=== PATIENT | female | born 1980 | race Caucasian/White ===

== ENCOUNTER 2019-07-19 02:44 | Day surgery (SDC) | payer OTHER, SELFPAY ==
[2019-07-09 15:23] VITALS: BMI 25.2
--- NOTE | ~2019-07-19 | XR_ITS ---
EXAMINATION: XR surgery orthopedic EXAM DATE: 07/19/2019 10:08 INDICATION: Right subtalar arthrodesis. TECHNIQUE: Fluoroscopy used during right subtalar arthrodesis performed by Dr. Charles Man JR MD. The DAP for this procedure was 5 cGycm2. No prior study. FINDINGS: Frontal and lateral projections demonstrate orthopedic fixation screw projecting over the middle aspect subtalar joint. Correlate with procedure note. IMPRESSION: Fluoroscopy used during right subtalar arthrodesis. Reviewed, dictated and finalized at location A. COUNSELOR
--- NOTE | 2019-07-19 07:15 | WPDHPUPDATE1 ---
History and Physical Update Update Date/Time: 07/19/19 07:15 History and Physical has been reviewed, including an updated exam of the patient. There are NO changes in the patient's condition. Risks, benefits, and alternatives have been discussed and questions answered. Patient agrees to proceed with procedure.
--- NOTE | 2019-07-19 07:49 | WPDANESEPPF ---
Anes - Initial Pre Proc Eval Procedure: Operation Date: 07/19/19 09:00 Proposed Procedures p Talotarsal Stabilization Right Foot With Arthroereisis Implant - Charles Man JR, MD Date/Time: 07/19/19 07:49 Surgeon: Charles Man JR, MD Pre Op Diagnosis: Talotarsal Instability Right Foot Patient Data Age: 39 Gender: F Height: 5 ft 7 in Weight: 73 kg Allergies Allergy/AdvReac Type Severity Reaction Status Date / Time aspirin Allergy Mild Difficulty Verified 07/09/19 15:20 Breathing Home Medications Medication Instructions Recorded Confirmed Type multivit with min-folic acid 0.4 mg PO 07/09/19 History [Adult One Daily Multivitamin] Patient hx anesthesia problems: none Family hx anesthesia problems: none PMFSH Past Medical History Medical History Smoker Tobacco abuse Family History Family History Grandparent Diabetes mellitus Social History Social History Smoking status: Light tobacco smoker Second hand tobacco smoke exposure: No Smoking end date: 05/29/10 Alcohol intake: current Anes - Eval Final PreProcedure Day of Procedure 07/19/19 07:49 Patient weight: normal Heart: regular rate and rhythm Lungs: clear to auscultation Airway: Mallampati scale class 1 Neurological: alert and oriented Last oral intake: >/= 8 hours ASA classification: II Emergent: no Anesthetic plan: proceed Anesthesia type and monitoring: general LMA and standard monitoring Informed Consent: The patient's anesthetic plan and its attendant risks and benefits were discussed with the patient/family/POA. Questions were solicited and answers provided to the satisfaction of the patient/family/POA.
[2019-07-19 08:00] VITALS: BP 113/45; PULSE 96; TEMP 36.6; O2SAT 100
[2019-07-19] MEDS: LACTATED RINGERS 1,000 ML 30 ML IV CONT (08:12)
[2019-07-19] MEDS: SCOPOLAMINE 1.5 MG PATCH TRANSDERM (08:25)
[2019-07-19] MEDS: ceFAZolin 2 GM/D5W 50 ML 2 GM/50 ML BAG IVPB (09:21)
[2019-07-19] MEDS: KETOROLAC 30 MG/ML VIAL (*BKC) IV PUSH (09:57)
[2019-07-19] MEDS: LIDOCAINE HCL 2% LOCAL INJ 20 ML VIAL INFILTRATE (09:57)
[2019-07-19 10:15] VITALS: BP 104/51; PULSE 84; RESP 16; O2SAT 97
--- NOTE | 2019-07-19 10:22 | PM.OP ---
Procedure Note - Brief Procedure Note - Brief Date of procedure: 07/19/19 Pre-op diagnosis: Talotarsal Instability Right Foot Post-op diagnosis: same Procedure performed: Talotarsal stabilization of the right foot with arthroereisis implant Anesthesia: MAC and local Surgeon: Charles Man JR, DPM Estimated blood loss (mL): 1 Complications: No immediate complications Condition: stable Disposition: same day
[2019-07-19 10:51] VITALS: BP 101/56; PULSE 66; RESP 16
--- NOTE | 2019-07-19 14:40 | OP_ITS ---
DATE OF PROCEDURE: 07/19/2019 PREOPERATIVE DIAGNOSIS: Talotarsal instability, right foot. POSTOPERATIVE DIAGNOSIS: Talotarsal instability, right foot. PROCEDURE: Talotarsal stabilization of the right foot with arthroereisis implant. PATHOLOGY: None. ANESTHESIA: MAC with local. HEMOSTASIS: Pneumatic ankle tourniquet at 250 mmHg. ESTIMATED BLOOD LOSS: Minimal. MATERIALS USED: 1 HyProCure size 6 implant, 3-0 PDS, 4-0 Vicryl, and 4-0 Monocryl. INJECTABLES: 20 cc of a 1:1 mixture of 2% lidocaine plain and 0.5% Marcaine plain. COMPLICATIONS: None. PROCEDURE IN DETAIL: Under mild sedation, the patient was brought into the operating room and placed on the operating table in the supine position. A pneumatic ankle tourniquet was placed about the patient's right ankle. Following IV sedation, local anesthesia was obtained about the right lower extremity utilizing 20 cc of a 1:1 mixture of 2% lidocaine plain and 0.5% Marcaine plain. I performed the block just posterior and inferior to the neck of the fibula depositing 20 cc. Prior to infiltrating the anesthesia, aspiration was performed to make sure that I was not into a vascular vessel. The foot was then scrubbed, prepped, and draped in the usual aseptic manner. An Esmarch bandage was then used to exsanguinate the patient's right foot and the pneumatic ankle tourniquet was then inflated. Surgery began in the following manner: Attention was then directed to the lateral aspect of the right hindfoot where the sinus tarsi was palpated. A small 2 cm incision was made along the lateral aspect of the sinus tarsi. The dissection was continued deep down through the subcutaneous tissues using sharp and blunt dissection. All bleeders were ligated and cauterized as necessary. At this point, a guidewire for the HyProCure implant was placed within the sinus tarsi canal. At this point, a size 5 trial for the HyProCure implant was placed from lateral to medial through the sinus tarsi canal and then the forefoot was placed through range of motion. There was excessive amounts of midtarsal joint motion with the size 5 implant, so the decision was made to try the size 6 HyProCure implant trial sizer, which also went from lateral to medial across the sinus tarsi. After insertion of the #6 trial implant, there was excellent locking of the midtarsal joint with an increase in elevation to the medial arch height and approximately 4 degrees of eversion still maintained at the subtalar joint. The decision was made to continue with the size 6 implant. At this point, the trial sizer was removed and the HyProCure implant was introduced through the sinus tarsi canal in a cannulated fashion. Fluoroscopy was used to make sure that the HyProCure implant was properly positioned within the sinus tarsi canal on the AP and lateral view. Furthermore on the AP view, the trailing end of the implant was noted to be along the lateral aspect of the neck of the talus. The wound site was flushed with copious amounts of sterile saline. Fluoroscopic images were used to make sure that the implant was appropriately aligned and oriented. Excellent correction of the talotarsal instability was performed. Next, the deep structures along the sinus tarsi were reapproximated with 3-0 PDS. Next, the subcutaneous structures were reapproximated and coapted utilizing 4-0 Vicryl. Next, the skin was reapproximated and coapted utilizing 4-0 Monocryl in a running subcuticular suture fashion technique. Upon completion of the procedure, the incision was dressed with Steri-Strips, Adaptic, 4x4s, Kerlix, and Coban. The pneumatic ankle tourniquet was then deflated and a prompt hyperemic response was noted to all digits of the right foot. A posterior splint was then applied to the right lower
== END 2019-07-19 11:35 | disposition home or self-care (01) ==
PROVIDERS: PCP Emergency Medicine; Visit Provider Podiatrist Foot & Ankle Surgery
PROC: (CPT 28750; principal; 2019-07-19 09:00)
DX: M25.374 Other instability, right foot (principal); M25.371 Other instability, right ankle; F17.210 Nicotine dependence, cigarettes, uncomplicated
CPT/HCPCS: 28899; A9270; J0690; J1100; J1885; J2250; J2405; J2704; J3010; J7120

== ENCOUNTER 2020-01-08 00:24 | Outpatient (CLI) | payer OTHER, SELFPAY ==
[2020-01-08 18:42] LABS: SARS-CoV-2 RNA PCR Negative
== END 2020-01-08 00:25 | disposition home or self-care (01) ==
LOC: ANHCOVIDDT 00:24
PROVIDERS: PCP Emergency Medicine; Visit Provider Urology
DX: Z01.812 Encounter for preprocedural laboratory examination (principal); Z20.828 Contact with and (suspected) exposure to other viral communicable diseases
CPT/HCPCS: 87635; C9803; U0003

== ENCOUNTER 2020-01-09 01:32 | Day surgery (SDC) | payer OTHER, SELFPAY ==
[2020-01-07 14:37] VITALS: BMI 28.1
[2020-01-09] VITALS (11 sets, daily range): BP systolic 91–131; BP diastolic 47–72; PULSE 67–96; RESP 12–20; TEMP 36.2–36.7; O2SAT 96–100
--- NOTE | ~2020-01-09 | XR_ITS ---
EXAMINATION: XR retrograde pyelo w/stent RT DATE: 01/09/2020 11:44 INDICATION: Right retrograde ureteral stent placement. TECHNIQUE: 64 fluoroscopic images of the abdomen and pelvis were obtained during procedure performed by Dr. Al. Radiologist was not present for the imaging or procedure. The amount of fluoroscopy ti me used during this procedure was 1.1 minutes. COMPARISON: None. FINDINGS: [employer] fluoroscopic images are unremarkable aside from a mild lumbar levorotoscoliosis. No evident uro lithiasis. A few small phleboliths in the left hemipelvis. Subsequent images demonstrate cannulation and retrograde wire advancement through the right ureter into the right kidney. Contrast injection de monstrates mild right hydroureteronephrosis. No evident obstructing stone or or mucosal irregularitie s identified. Final images demonstrate placement of a right internal ureteral stent with proximal loo p formed within a dilated upper pole calyx of the right kidney and partially formed loop in the bladd er. IMPRESSION: 1. Right internal ureteral stent placement in expected position. See procedure note for further detai l. Reviewed, dictated and finalized at location A. IMPRESSION: 1. Right internal ureteral stent placement in expected position. See procedure note for further detail.
[2020-01-09] MEDS: LACTATED RINGERS 1,000 ML 30 ML IV CONT ×2 (09:30→11:52)
--- NOTE | 2020-01-09 10:33 | WPDANESEPPF ---
Anes - Initial Pre Proc Eval Procedure: Operation Date: 01/09/20 11:15 Proposed Procedures p Cystoscopy, Right Ureteroscopy, Right Retrograde Pyelogram, Possible Right Stent Placement - Jey Al MD s Possible Bladder Tumor Resection - Jey Al MD Date/Time: 01/09/20 10:33 Surgeon: Jey Al MD Pre Op Diagnosis: Gross Hematuria/ Right Hydronephrosis Patient Data Age: 39 Gender: F Height: 5 ft 7 in Weight: 81.65 kg Allergies Allergy/AdvReac Type Severity Reaction Status Date / Time aspirin Allergy Mild Difficulty Verified 01/07/20 14:38 Breathing Home Medications Medication Instructions Recorded Confirmed Type acetaminophen [Tylenol Extra 1,000 mg PO BID PRN 01/07/20 01/07/20 History Strength] multivitamin 1 tablet PO DAILY 01/07/20 01/07/20 History Patient hx anesthesia problems: none Family hx anesthesia problems: none PMFSH Social History Social History Smoking packs per day: 0.5 Smoking cigarettes per day: 10.0 Years smoked: 15 Smoking pack-years: 7.50 Smoking status: Current every day smoker Tobacco type: cigarettes Second hand tobacco smoke exposure: No Smoking end date: 05/29/10 Alcohol intake: current Drinks per week: 5 Spiritual care concerns: No Anes - Eval Final PreProcedure Day of Procedure 01/09/20 10:33 Patient weight: normal Heart: regular rate and rhythm Lungs: clear to auscultation Airway: Mallampati scale class II Neurological: alert and oriented Last oral intake: >/= 8 hours ASA classification: II Emergent: no Anesthetic plan: proceed Anesthesia type and monitoring: general LMA and standard monitoring Informed Consent: The patient's anesthetic plan and its attendant risks and benefits were discussed with the patient/family/POA. Questions were solicited and answers provided to the satisfaction of the patient/family/POA.
--- NOTE | 2020-01-09 10:39 | WPDHPUPDATE1 ---
History and Physical Update Update Date/Time: 01/09/20 10:39 History and Physical has been reviewed, including an updated exam of the patient. There are NO changes in the patient's condition. Risks, benefits, and alternatives have been discussed and questions answered. Patient agrees to proceed with procedure.
[2020-01-09] MEDS: ceFAZolin 2 GM/D5W 50 ML 2 GM/50 ML BAG IVPB (10:46)
--- NOTE | 2020-01-09 12:00 | SUR.PHASEI ---
1200; PT AWAKE NOW. GRIMACING. C/O INTENSE URGE TO VOID. PLACED ON BEDPAN
--- NOTE | 2020-01-09 12:01 | PM.PROC ---
Procedure Note - Detailed Date of procedure: 01/09/20 Pre-op diagnosis: Gross Hematuria/ Right Hydronephrosis Post-op diagnosis: same Procedure performed: 1. Cystoscopy with right retrograde pyelography 2. Right ureteroscopy with ureteral biopsy 3. Transurethral biopsy the bladder. 4. Right ureteral stent placement. Description of procedure: Patient is brought to the operative suite where she has prepped and draped in routine sterile fashion while in a dorsal lithotomy position. 21F rigid cystoscope was placed into her bladder and urine was collected for cytology. 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 The left ureteral orifice is normal but there is heaped, edematous tissue occluding the right ureteral orifice and surrounding the orifice for a diameter of about 1-2 cm circumferentially. This has a very unusual appearance but appears to be edematous tissue and not neoplastic, by gross visualization. with some difficulty a was able to identify the right ureteral orifice and a right retrograde pyelogram. There is some narrowing of the distal most 2-3 cm of the distal right ureter but the remainder of the appears normal, with the exception of some dilatation as a result of obstruction. I did pass a 7.5 F flexible ureteral scope and did ureteral re-endoscopy. The collecting system and more proximal ureter. Perfectly normal. Again this area of narrowing and slightly abnormal ureteral mucosa occurs in the last 2-3 cm of the distal ureter. I took some biopsies of that distal ureteral mucosa. I then used a resectoscope to obtain biopsies and resected the heaped edematous tissue surrounding the right ureteral orifice. I also took a separate biopsy from an area of hyperemia in the posterior bladder wall. These biopsy sites were cauterized with a rollerball electrode and a 6 F variable length ureteral stent was placed. Blood loss was minimal. The patient was taken recovery room in good conditi Surgeon: Jey Al MD Estimated blood loss (mL): 5 Drains: Yes (6F right ureteral stent) Packing: No Pathology: yes (1. Urine cytology 2. Right periureteral tissue 3. Right ureteral biopsy 4. Posterior bladder wall) Complications: No immediate complications Condition: stable Disposition: PACU
--- NOTE | 2020-01-09 12:10 | SUR.PHASEI ---
PT CRYING. C/O URGE TO VOID AGAIN. PLACED ON BEDPAN. C/O PAIN WITH URINATION. FENTANYL GIVEN. PT COMFORTED.
--- NOTE | 2020-01-09 12:29 | SUR.PHASEI ---
PT C/O INTENSE URGE TO VOID WITH PAIN TO URETHRA/VAGINA AT 9/10. PT TEARFUL. CALLED PLACED TO DR AMADOR
[2020-01-09] MEDS: KETOROLAC 30 MG/ML VIAL (*BKC) IV PUSH (12:36)
[2020-01-09] MEDS: HYOSCYAMINE SULFATE 0.125 MG TABLET PO (12:38)
--- NOTE | 2020-01-09 12:39 | SUR.PHASEI ---
1230; DR AAMDOR AT BEDSIDE. TORADOL AND LEVSIN BOTH ORDERED. DISCUSSED ALLERGY TO ASA. PT STATES IT WAS WHEN SHE WAS A CHILD. UNKNOWN REACTION. DR AMADOR ORDERED TORADOL.
--- NOTE | 2020-01-09 13:17 | SUR.PHASEI ---
PT AWAKE AND ALERT. STATES PAIN 7/10 AND GETTING BETTER. PT TALKATIVE. CALM.
--- NOTE | 2020-01-09 13:34 | SUR.PHASEI ---
PT AWAKE AND ALERT. STATES PAIN MUCH BETTER AT 3-4/10. READY TO GO HOME.
--- NOTE | 2020-01-09 14:44 | SUR.PHASEII ---
1435 - dr. mandujano in room talking with pt
== END 2020-01-09 14:40 | disposition home or self-care (01) ==
PROVIDERS: PCP Emergency Medicine; Visit Provider Urology
PROC: (CPT 52352; principal; 2020-01-09 11:15)
DX: N13.30 Unspecified hydronephrosis (principal); N28.89 Other specified disorders of kidney and ureter; N30.91 Cystitis, unspecified with hematuria; F17.210 Nicotine dependence, cigarettes, uncomplicated; Z79.82 Long term (current) use of aspirin
CPT/HCPCS: 52354; 52332; 52204; 74420; 88108; 88305; A9270; C1758; C1769; C2617; J0690; J1100; J1885; J2250; J2405; J2704; J3010; J7120; Q9966

== ENCOUNTER 2020-02-14 11:24 | Outpatient (CLI) | payer OTHER, SELFPAY ==
--- NOTE | ~2020-02-14 | CT_ITS ---
EXAMINATION: CT abdomen pelvis wo con EXAM DATE: 02/14/2020 11:55 INDICATION: Right-sided hydronephrosis. TECHNIQUE: Spiral CT of the abdomen and pelvis was performed following intravenous injection of 100 m L Omnipaque 350. Axial, coronal and sagittal images were reviewed. The dose-length product (DLP) fo r this examination was 744.67 mGy-cm. The exposure was tailored according to patient size (auto mA e xposure control), and iterative reconstruction (ASIR) was used as additional dose reduction technique . There is no prior study for comparison. FINDINGS: The liver, spleen, adrenal glands and pancreas are unremarkable. Gallbladder is unremarkab le. No biliary obstruction. There is mild bilateral hydronephrosis without obstructing stones identi fied. Small uterus or hysterectomy. There is small amount of fluid located above the bladder measurin g about 2 x 4 cm of uncertain origin but could be from a ruptured ovarian cyst if patient still has o varies. The bladder is collapsed at time of imaging limiting evaluation. There is no retroperitoneal or pelvic lymphadenopathy. The appendix is normal. There is mild sigmoid colonic diverticulosis. There is no adjacent inflammat ory change to suggest diverticulitis. The stomach and small bowel are unremarkable. There is expecte d amount of colonic stool. No free intraperitoneal gas. The heart is normal in size. There are n o pericardial or pleural effusions. The lung bases are unremarkable. Mild to moderate lumbar levosc oliosis. IMPRESSION: 1. Mild bilateral hydronephrosis without stones or underlying etiology identified. 2. Small pocket amount of free fluid in the pelvis probably physiologic. 3. Mild sigmoid diverticulosis. Reviewed, dictated and finalized at location A. IMPRESSION: 1. Mild bilateral hydronephrosis without stones or underlying etiology iden tified. 2. Small pocket amount of free fluid in the pelvis probably physiologic. 3. Mild sigmoid diverticulosis.
== END 2020-02-14 11:25 | disposition home or self-care (01) ==
PROVIDERS: PCP Emergency Medicine; Visit Provider Urology
DX: N13.30 Unspecified hydronephrosis (principal); K57.90 Diverticulosis of intestine, part unspecified, without perforation or abscess without bleeding
CPT/HCPCS: 74176

== ENCOUNTER 2020-02-21 00:27 | Outpatient (CLI) | payer OTHER, SELFPAY ==
[2020-02-21 18:02] LABS: SARS-CoV-2 RNA PCR Negative
== END 2020-02-21 00:28 | disposition home or self-care (01) ==
LOC: ANHCOVIDDT 00:28
PROVIDERS: PCP Emergency Medicine; Visit Provider Urology
DX: Z01.812 Encounter for preprocedural laboratory examination (principal); Z20.828 Contact with and (suspected) exposure to other viral communicable diseases
CPT/HCPCS: 87635; C9803; U0003

== ENCOUNTER 2020-02-24 00:35 | Day surgery (SDC) | payer OTHER, SELFPAY ==
[2020-02-19 14:45] VITALS: BMI 28.1
--- NOTE | 2020-02-23 17:32 | PM.IMHP ---
H&P: HPI History of Present Illness Date/Time: 02/23/20 17:32 Chief complaint: hunters ulcer, hydronephrosis Narrative: Laura Galloway is a 39 year old female with errythema of the bladder and hydronephrosis Review of Systems Review of Systems: All systems reviewed & are unremarkable except as noted in HPI and below PMFSH Social History Social History Smoking packs per day: 0.5 Smoking cigarettes per day: 10.0 Years smoked: 15 Smoking pack-years: 7.50 Smoking status: Current every day smoker Tobacco type: cigarettes Second hand tobacco smoke exposure: No Smoking end date: 05/29/10 Alcohol intake: current Drinks per week: 5 Spiritual care concerns: No Meds Home Medications and Allergies Home Medications Medication Instructions Recorded Confirmed Type acetaminophen [Tylenol Extra 1,000 mg PO BID PRN 01/07/20 02/19/20 History Strength] multivitamin 1 tablet PO DAILY 01/07/20 02/19/20 History hydrocodone-acetaminophen 1 - 2 tablet PO Q6H PRN #20 tablet 01/09/20 02/19/20 Rx Allergies Allergy/AdvReac Type Severity Reaction Status Date / Time aspirin Allergy Mild Difficulty Verified 02/19/20 14:45 Breathing Exam Const: General: no acute distress HENMT: General nose exam: Normal nares present Mouth: Yes moist mucous membranes Eyes: General: appearance normal, both eyes and all related structures Neck: Neck: supple Resp: Effort & Inspection: normal respiratory effort GI: GI Palp: Yes Soft to palpation Skin: General skin exam: normal color Neuro: Speech: normal speech Extrem: General: normal to inspection Psych: Mental Status: mental status grossly normal Assessment and Plan Assessment and plan (1) Lesion of urinary bladder: Code(s): N32.9 - Bladder disorder, unspecified Status: Acute (2) Hydronephrosis: Code(s): N13.30 - Unspecified hydronephrosis Status: Acute Additional Plan cystoscopy, biopsy, possible steroid injection, Bilateral RGP, possible bilateral stents
--- NOTE | ~2020-02-24 | XR_ITS ---
EXAMINATION: XR retrograde pyelogram LT EXAM DATE: 02/24/2020 14:10 INDICATION: Left-sided retrograde. TECHNIQUE: Fluoroscopy used during XR retrograde pyelogram LT performed by Dr. Wilbert Godfrey MD . The DAP for this procedure was 0.3 mGym2. Cine run(s) available for review. FINDINGS: Left ureter was cannulated, injected. The distal 3 cm of the ureter has diffusely strictur ed appearance, with mild left-sided hydroureteronephrosis proximal to this. This narrowing could be c aused by acute or chronic inflammation, or cancer. Correlate with procedure note. IMPRESSION: Distal left ureteral 3 cm segment of narrowing with mild hydroureteronephrosis proximal. Could be inflammation related but transitional cell cancer not radiographically excludable. Reviewed, dictated and finalized at location A. IMPRESSION: Distal left ureteral 3 cm segment of narrowing with mild hydrourete ronephrosis proximal. Could be inflammation related but transitional cell cance r not radiographically excludable.
--- NOTE | 2020-02-24 07:19 | WPDHPUPDATE1 ---
History and Physical Update Update Date/Time: 02/24/20 07:19 History and Physical has been reviewed, including an updated exam of the patient. There are NO changes in the patient's condition. Risks, benefits, and alternatives have been discussed and questions answered. Patient agrees to proceed with procedure.
[2020-02-24 13:04] VITALS: BP 141/76; PULSE 96; RESP 16; TEMP 36.6; O2SAT 98
--- NOTE | 2020-02-24 13:16 | WPDANESEPPF ---
Anes - Initial Pre Proc Eval Procedure: Operation Date: 02/24/20 14:30 Proposed Procedures p Cystoscopy, Bladder Biopsy with Steroid Injection, Bilateral Retrograde Pyelogram, Possible Bilateral Stent Placement - Wilbert Godfrey MD Date/Time: 02/24/20 13:16 Surgeon: Wilbert Godfrey MD Pre Op Diagnosis: hunters ulcer, hydronephrosis Patient Data Age: 39 Gender: F Height: 5 ft 7 in Weight: 81.65 kg Allergies Allergy/AdvReac Type Severity Reaction Status Date / Time aspirin Allergy Mild Difficulty Verified 02/19/20 14:45 Breathing Home Medications Medication Instructions Recorded Confirmed Type acetaminophen [Tylenol Extra 1,000 mg PO BID PRN 01/07/20 02/24/20 History Strength] multivitamin 1 tablet PO DAILY 01/07/20 02/24/20 History hydrocodone-acetaminophen 1 - 2 tablet PO Q6H PRN #20 tablet 01/09/20 02/24/20 Rx Patient hx anesthesia problems: none Family hx anesthesia problems: none PMFSH Past Medical History Medical History (Updated 02/23/20 @ 17:33 by Wilbert Godfrey MD) Smoker Tobacco abuse Surgical History Surgical History (Updated 02/24/20 @ 13:34 by Alex Olivas MD) Hx of cystoscopy Social History Social History (Updated 02/24/20 @ 13:32 by Alex Olivas MD) Smoking packs per day: 0.5 Smoking cigarettes per day: 10.0 Years smoked: 15 Smoking pack-years: 7.50 Smoking status: Current every day smoker Tobacco type: cigarettes Second hand tobacco smoke exposure: No Alcohol intake: current Drinks per week: 5 Spiritual care concerns: No Anes - Eval Final PreProcedure Day of Procedure 02/24/20 13:16 Patient weight: overweight and obese Heart: regular rate and rhythm Lungs: clear to auscultation Airway: Mallampati scale class 1 Neurological: alert and oriented Last oral intake: >/= 8 hours ASA classification: II Emergent: no Anesthetic plan: proceed Anesthesia type and monitoring: general GIVS and standard monitoring Informed Consent: The patient's anesthetic plan and its attendant risks and benefits were discussed with the patient/family/POA. Questions were solicited and answers provided to the satisfaction of the patient/family/POA.
[2020-02-24] MEDS: LACTATED RINGERS 1,000 ML 30 ML IV CONT (13:21)
[2020-02-24] MEDS: ceFAZolin 2 GM/D5W 50 ML 2 GM/50 ML BAG IVPB (13:37)
[2020-02-24] MEDS: LIDOCAINE HCL 2% GEL UROJET 10 ML PKG MUCOUS MEM (13:53)
[2020-02-24] MEDS: TRIAMCINOLONE ACET INJ 40 MG/ML VIAL 200 MG IM (13:57)
[2020-02-24] MEDS: KETOROLAC 30 MG/ML VIAL (*BKC) IV PUSH (14:04)
--- NOTE | 2020-02-24 14:13 | PM.PROC ---
Procedure Note - Detailed Date of procedure: 02/24/20 Pre-op diagnosis: hunters ulcer, hydronephrosis Post-op diagnosis: same Procedure performed: Cystoscopy with left retrograde pyelogram Bladder biopsy with steroid injection Description of procedure: She was correctly identified informed consent was obtained. She from the operating room. She was given mac anesthesia. She was placed in dorsal lithotomy position. She was given appropriate perioperative antibiotics. A time-out performed. Examination of her bladder revealed a reddened area on the right mirella trigone extending up to the right lateral wall. There is cautery artifact in this area. I was unable to appreciate ureteral orifice. I could see the ureteral orifice on the left. I did a retrograde pyelogram on the left. She had a short segment of her left distal ureter which seemed to be strictured for about 2-3 cm. She then had mild proximal hydronephrosis to this. There is no filling defects. The ureter seemed to promptly drained. I examined the ureter with fluoroscopy as well as visually. Dye could be seen effluxing from the ureter and the kidney seemed to drain on that side. I elected to not leave a stent. I then searched for the contralateral ureteral orifice. There is extensive cautery artifact in this area and I was unable to find the contralateral ureteral orifice. As she has no right-sided symptoms I elected to not search further. I then biopsied an area of redness remote from where I thought the ureteral orifice would be. I took the specimens. I fulgurated the area. I did inject Kenalog. 5 cc total of 40 milligrams/mL. There is minimal bleeding from the injection sites. Her bladder was drained. She was awakened and transferred to the PACU in stable condition. Anesthesia: MAC Surgeon: Wilbert Godfrey MD Estimated blood loss (mL): 2 Drains: No Packing: No Pathology: yes (Bladder biopsy) Complications: No immediate complications Condition: stable Disposition: PACU
[2020-02-24 14:18] VITALS: BP 109/72; PULSE 88; RESP 14; O2SAT 97
[2020-02-24] MEDS: fentaNYL CITRATE INJ (*CRX) 100 MCG/2 ML VIAL 25 MCG IV PUSH ×3 (14:23→14:36)
[2020-02-24 14:45] VITALS: BP 125/78; PULSE 70; RESP 18; O2SAT 99
[2020-02-24] MEDS: oxyCODONE HCL (*CRX) 5 MG TAB IR PO (14:49)
[2020-02-24 15:15] VITALS: BP 126/67; PULSE 77; RESP 18
== END 2020-02-24 15:23 | disposition home or self-care (01) ==
PROVIDERS: PCP Emergency Medicine; Visit Provider Urology
PROC: (CPT 52352; principal; 2020-02-24 14:30)
DX: N30.10 Interstitial cystitis (chronic) without hematuria (principal); N13.30 Unspecified hydronephrosis; F17.210 Nicotine dependence, cigarettes, uncomplicated
CPT/HCPCS: 52283; 52204; 74420; 88305; A9270; C1758; C1769; J0690; J1885; J2250; J2405; J2704; J3010; J3301; J7120; Q9966

== ENCOUNTER → 2021-08-17 00:24 | Outpatient (CLI) | payer OTHER, SELFPAY ==
[2021-08-17 11:12] LABS: SARS-CoV-2 RNA PCR Negative
== END ==
PROVIDERS: PCP Emergency Medicine; Visit Provider Surgery Plastic and Reconstructive Surgery
DX: Z01.812 Encounter for preprocedural laboratory examination (principal); Z20.822 Contact with and (suspected) exposure to COVID-19
CPT/HCPCS: C9803; U0003; U0005

== ENCOUNTER 2021-08-17 08:57 | Outpatient (CLI) | payer OTHER, SELFPAY ==
--- NOTE | 2021-08-17 09:07 | ECG_ITS ---
Measurements Intervals [place] Rate: 71 P: 62 WI: 153 QRS: 60 QRSD: 81 T: 49 QT: 376 QTc: 410 Interpretive Statements SINUS RHYTHM NORMAL ECG NO PREVIOUS ECG AVAILABLE FOR COMPARISON Electronically Signed On 08-17-2021 11:21:56 CDT by Tray Foley M.D.
[2021-08-17 09:38] LABS: Hematocrit 38.5 % (37.0-47.0); Hemoglobin 12.9 g/dL (12.0-15.0)
== END 2021-08-17 08:58 | disposition home or self-care (01) ==
LOC: ANHSURGERY 09:01
PROVIDERS: Anesthesiology; PCP Nurse Practitioner Family; Visit Provider Surgery Plastic and Reconstructive Surgery
DX: Z01.818 Encounter for other preprocedural examination (principal); Z41.9 Encounter for procedure for purposes other than remedying health state, unspecified
CPT/HCPCS: 36415; 85014; 85018; 93005

== ENCOUNTER 2021-08-20 00:56 | Day surgery (SDC) | payer OTHER, SELFPAY ==
[2021-08-10 13:51] VITALS: BMI 28.1
--- NOTE | 2021-08-10 14:04 | PC.NURSE ---
Report to the Outpatient Waiting Room, entrance under the green pavilion located off [facility], at time 6:00 on date 08/20/21. OR Time: 7:30. - You and your visitor will be asked a series of questions to screen for COVID 19 for your protection. - A mask is required within the hospital. One visitor will be allowed to accompany the patient into the hospital. Patients visitor will be instructed to remain with patient at all times or leave the building. We will allow the visitor to come back to the postoperative area when patient is ready. Preoperative COVID Testing Requirements: COVID TEST 08/17 AT 9:05 No COVID Test needed if: (proof is required; if not received patient will have Rapid Test prior to entry) - Patient has received COVID Vaccine at least 14 days prior to procedure date or - Patient has positive COVID test result within last 90 days of surgery date. COVID Test needed if above criteria is not met If not COVID vaccinated a COVID test must be conducted within 72 hours of surgery and patient is asked to isolate self from time of testing until procedure. You will go to the [facility] for your COVID testing. The [employer] [facility] site is located at the corner of [address] [facility]. You will only be called if COVID results are positive and your surgeon may reschedule your elective surgery date. Patients may have clear liquids (water, carbonated beverages, clear teas, apple juice) until 3 hours prior to surgery (4:30) with a maximum of 20 ounces. - No food from midnight until time of surgery Take the following medications with a SIP of water the morning of surgery: NONE Medications to discontinue per physician: VITAMINS/SUPPLEMENTS Date to take last dose: 08/16/21 Please no make-up, nail yakut, hairspray, perfume, deodorant, or body powder the day of surgery. No jewelry (including any body piercings) or valuables the day of surgery, leave them at home. Please take a shower or bath the night before, or the morning of, surgery with an antibacterial soap. Wear comfortable, loose fitting clothing. - Jewelry must be removed prior to entering the operating room. Rings and piercings that are not removed may be cut off. - The hospital will not accept responsibility for valuables. - Please leave all valuables, including medications, at home the day of surgery. If you are going home after surgery, a licensed bus driver must drive you home. - NO public transportation without another adult. - We recommend that an adult stay with you for 24 hours following discharge. - We also recommend that you do not drive, make important decision, drink alcoholic beverages, or take any drugs that were not prescribed by your health care provider for at least 24 hours after your discharge time. Follow any additional instructions given to you from your surgeon. Telephone instructions given to GÉNESIS COONEY and asked if any additional questions and then verbalized understanding. Patient advised to call surgeon office or pre surgery nurse liaison [phone] if any additional questions.
[2021-08-20] VITALS (11 sets, daily range): BP systolic 104–125; BP diastolic 62–79; PULSE 80–95; RESP 12–20; TEMP 36.2–36.8; O2SAT 94–100; BMI 28.7
--- NOTE | 2021-08-20 06:08 | W.PM.PROC2 ---
Procedure Note - Detailed Date of Procedure 08/20/21 Pre-op Diagnosis Micromastia Breast ptosis Skin laxity Localized adiposity Post-op Diagnosis Same Procedure Performed 1. Bilateral breast augmentation mastopexy 2. Suction lipectomy of the lateral breasts 3. Suction lipectomy of saddlebags 4. Extended abdominoplasty 5. Suction lipectomy abdomen/flank Surgeon Richard Felder MD Anesthesia General Findings Inverted T superior pedicle mastopexy Implants bilateral Raciel Lee SoftTouch 440 cc Right - REF# [id number] SN [id number] Left - REF# [id number] SN [id number] Abdominal tissue removed - 1746 grams Lipoaspirate - 3750 cc Description of Procedure They are here today for the above procedures. Previously and again today the risks, benefits, alternatives were discussed in extensive detail. I wanted them to be very realistic about the risks involved as well as expectations. We discussed aftercare and what to monitor for. I was very upfront about the risks of wound breakdown leading to loss of skin, open wounds, and need for additional procedures with permanent abdominal deformity. We discussed DVT/PE risks and management. Made sure answered all of their questions to their satisfaction today and consent was obtained. Marked in the preoperative holding area with her verification. The patient was taken to the operating room placed supine on the operating table. Anesthesia was provided by anesthesiology. She was prepped and draped in a standard sterile fashion with a 360 degree prep. Breast An 11 blade was used to create an entry point for lateral breast suction lipectomy. Tumescent was utilized and adequate time for hemostasis allowed. A 5mm basket cannula was used based on S.A.F.E. technique to complete lateral breast suction lipectomy based on pre-operative planning, intraoperative observation and rolling pinch test. Tegaderm nipple Jenkins were placed. A 15 blade used to make an incision just superior to the inframammary fold leaving a cusp of de-epithelized tissue at the t junction. Dissection was continued until the chest wall as identified. I incised the pectoralis major along its inferior border and completely released the inferior border leaving the medial border intact. I created a subpectoral pocket in the appropriate dimensions based on our preoperative planning for the implant. I then copiously irrigated with saline solution and verified a strict hemostasis. Next the use a triple antibiotic and Betadine containing solution to irrigate the pocket. I washed my gloves with the triple antibiotic and Betadine solution. We washed the implant immediately upon opening it with this solution and only opened it when we needed it. I used implant funnel and no-touch technique. The implant was introduced into the pocket using the funnel. Having verified positioning of the implant this was closed using 2-0 Vicryl. I tailor tacked the breast into position. Placed her in a sitting position. Verified the nipple-areolar location based on preoperative planning as well as intraoperative observations and measurements in full agreement. She was placed supine. I de-epithelialized the pedicle. I then removed the inferior central portion of the breast need making sure the implant was well protected. I elevated medial and lateral tissue flaps as well for planned closure. I closed along the IMF with 2-0 Stratafix. Along the vertical with 2-0 PDS. I closed around the Len with 3-0 strata fix. 3-0 Monocryl along the vertical. 3-0 Stratafix along the IMF. I finally closed everything with running subcuticular 4-0 Monocryl and tissue glue. Abdomen An 11 blade was used to create an entry point abdomen / flank and saddle bag suction lipectomy. Tumescent was utilized and adequate time for hemostasis allowed. A 5mm basket cannula was used based on S.A.F.E. technique to complete lateral breast suction lipectomy based on pre-operative chau
[2021-08-20 06:37] LABS: Urine Cotinine NEGATIVE
--- NOTE | 2021-08-20 06:48 | WPDANESEPPF ---
Anes - Initial Pre Proc Eval Procedure: Operation Date: 08/20/21 07:30 Proposed Procedures p Bilateral Breast Augmentation, Bilateral Breast Mastopexy - Richard Felder MD s Abdominoplasty with Liposuction - Richard Felder MD s Liposuction of Lateral Bilateral Breasts, Bilateral Saddle Bags - Richard Felder MD Date/Time: 08/20/21 06:48 Surgeon: Richard Felder MD Pre Op Diagnosis: Micromastia Breast Ptosis Patient Data Age: 41 Gender: F Height: 1.7 m Weight: 83.1 kg Allergies Allergy/AdvReac Type Severity Reaction Status Date / Time aspirin Allergy Mild Difficulty Verified 08/20/21 06:33 Breathing Home Medications Medication Instructions Recorded Confirmed Type docusate sodium 100 mg capsule 100 mg PO DAILY #14 cap 08/04/21 08/10/21 Rx ondansetron HCl 4 mg tablet 4 mg PO Q8H #21 tablet 08/04/21 08/10/21 Rx carisoprodol 350 mg tablet 350 mg PO TID PRN #21 tablet 08/05/21 08/10/21 Rx oxycodone-acetaminophen 5 mg-325 1 tablet PO Q6H PRN #30 tablet 08/05/21 08/10/21 Rx mg tablet multivitamin 1 tablet PO DAILY 08/10/21 08/20/21 History Laboratory Tests 08/20/21 06:24 Cotinine Negative Patient hx anesthesia problems: post op nausea/vomiting Family hx anesthesia problems: none Results Review: All pre-operative results and documents have been reviewed as part of the pre-operative evaluation. [facility] Past Medical History Medical History Hx of cervical cancer Smoker Tobacco abuse Surgical History Surgical History H/O transurethral destruction of bladder lesion Hx of cystoscopy Hx of foot surgery Family History Family History Grandparent Diabetes mellitus Social History Social History Smoking packs per day: 1 Smoking cigarettes per day: 20.0 Years smoked: 11 Smoking pack-years: 11.00 Smoking status: Former smoker Tobacco type: cigarettes Second hand tobacco smoke exposure: No Smoking end date: 07/17/21 Alcohol intake: former Drinks per week: 5 Substance use: current Substance use type: marijuana Living arrangements: with family Spiritual care concerns: No Anes - Eval Final PreProcedure Day of Procedure 08/20/21 06:48 Patient weight: overweight Heart: regular rate and rhythm Lungs: clear to auscultation Airway: Mallampati scale class 1 Neurological: alert and oriented Last oral intake: >/= 8 hours ASA classification: II Emergent: no Anesthetic plan: proceed Anesthesia type and monitoring: general ETT and standard monitoring Results Review: All pre-operative results and documents have been reviewed as part of the pre-operative evaluation. Informed Consent: The patient's anesthetic plan and its attendant risks and benefits were discussed with the patient/family/POA. Questions were solicited and answers provided to the satisfaction of the patient/family/POA.
[2021-08-20] MEDS: LACTATED RINGERS 1,000 ML 30 ML IV CONT ×2 (06:53→13:00)
--- NOTE | 2021-08-20 06:53 | SUR.PREOP ---
500ML IVF BOLUS INFUSING PER DR FOLEY
--- NOTE | 2021-08-20 07:08 | WPDHPUPDATE1 ---
History and Physical Update Update Date/Time: 08/20/21 07:08 History and Physical has been reviewed, including an updated exam of the patient. There are NO changes in the patient's condition. Risks, benefits, and alternatives have been discussed and questions answered. Patient agrees to proceed with procedure.
[2021-08-20] MEDS: SCOPOLAMINE 1.5 MG PATCH TRANSDERM (07:21)
[2021-08-20] MEDS: ceFAZolin 2 GM/D5W 50 ML 2 GM/50 ML BAG IVPB (07:30)
[2021-08-20] MEDS: TRANEXAMIC ACID 1,000MG/ISO100 1,000 MG/100 ML BAG 200 MG IVPB (08:00)
[2021-08-20] MEDS: LACTATED RINGERS IRRIG 1,000 ML, LIDOCAINE HCL 1% LOCAL INJ 50 ML, EPINEPHrine HCL INJ ... INFILTRATE (10:55)
[2021-08-20] MEDS: ceFAZolin SODIUM 1 GM VIAL IV PUSH (11:52)
[2021-08-20] MEDS: ONDANSETRON INJ 4 MG/2 ML VIAL IV PUSH (13:22)
[2021-08-20] MEDS: fentaNYL CITRATE INJ (*CRX) 100 MCG/2 ML VIAL 25 MCG IV PUSH ×8 (13:24→14:28)
--- NOTE | 2021-08-20 14:45 | PC.NURSE ---
This patient, Laura Galloway, was received from PACU on 08/20/21 at 1445. Patient/family oriented to unit policies and routines
[2021-08-20] MEDS: LACTATED RINGERS 1,000 ML 125 ML IV CONT ×2 (15:03→22:54)
[2021-08-20] MEDS: MORPHINE SULFATE (*CRX) 2 MG/ML INJ IV PUSH ×3 (15:05→21:20)
[2021-08-20] MEDS: carisoprodoL (*CRX) 350 MG TABLET PO ×2 (16:06→22:54)
[2021-08-20] MEDS: ENOXAPARIN 40 MG/0.4 ML SYRINGE SUB-Q (19:03)
[2021-08-20] MEDS: DOCUSATE SODIUM 100 MG CAPSULE PO (19:06)
[2021-08-20] MEDS: oxyCODONE/ACETAMINOPHEN (*CRX) 5-325 MG TABLET PO (19:06)
[2021-08-20] MEDS: diazePAM (*CRX) 5 MG TABLET PO (21:20)
[2021-08-21 00:10] VITALS: PULSE 86; RESP 16; O2SAT 95
[2021-08-21 00:11] VITALS: BP 98/55; PULSE 86; RESP 16; TEMP 37; O2SAT 95
[2021-08-21] MEDS: MORPHINE SULFATE (*CRX) 2 MG/ML INJ IV PUSH ×3 (00:24→07:21)
--- NOTE | 2021-08-21 00:51 | PC.NURSE ---
Pt refusing catheter removal or to get out of bed at this time. Pt states, I'm not ready yet, it's too soon . Education provided regarding importance of cough, deep breathing, and getting out of bed for prevention of secondary infections and blood clots. Pt verbalized understanding however wants to continue to give herself more time to rest. There was some drainage noted to abdominal bind that was in place. Binder removed and foam lifted and fluffs that were present were saturated with blood. Dressing reinforced with 2 additional packages of fluffs, foam piece reapplied, and abdominal binder replaced. Pt did not tolerate this well.
[2021-08-21] MEDS: oxyCODONE/ACETAMINOPHEN (*CRX) 5-325 MG TABLET PO ×3 (03:37→18:42)
[2021-08-21 03:45] VITALS: BP 108/61; PULSE 96; RESP 18; TEMP 36.9; O2SAT 95
[2021-08-21] MEDS: carisoprodoL (*CRX) 350 MG TABLET PO ×4 (05:08→22:37)
[2021-08-21] MEDS: LACTATED RINGERS 1,000 ML 125 ML IV CONT (07:21)
[2021-08-21] MEDS: DOCUSATE SODIUM 100 MG CAPSULE PO ×2 (07:22→18:41)
[2021-08-21 07:30] VITALS: BP 103/63; PULSE 100; RESP 18; TEMP 36.4
--- NOTE | 2021-08-21 08:09 | WPDPN ---
Progress Note: A&P Assessment and Plan (1) Encounter for cosmetic surgery: Code(s): Z41.1 - Encounter for cosmetic surgery Status: Acute Assessment and Plan: Doing well after: 1. Bilateral breast augmentation mastopexy 2. Suction lipectomy of the lateral breasts 3. Suction lipectomy of saddlebags 4. Extended abdominoplasty 5. Suction lipectomy abdomen/flank Will plan for discharge home. Today we had a lengthy discussion about the care. What monitor for. Activity limitations. This was a lengthy open-ended conversation making sure answered all of her questions to her satisfaction. She understands when to call 911/proceed to the ER. She understands she can call with any questions or concerns. She is concerned she will not be able to leave today. We will monitor throughout the day and plan to discharge home later as long as ambulating, tolerating diet, pain controlled and doing well. Subjective Date/time seen: 08/21/21 08:09 Overnight she has done fairly well. She has been out of bed. Tolerating some p.o.. Moderate pain control. No fevers or chills. No nausea vomiting. No shortness of breath. No chest pain. No calf tenderness. Review of Systems Review of Systems: All systems reviewed & are unremarkable except as noted in HPI and below Exam Narrative: Alert and oriented no obvious distress Respiratory on labored Bilateral breasts are soft. No signs of infection. No hematoma. No seroma. Good color and capillary refill. Healing well. Abdomen is healing well. No signs of infection. No hematoma. No seroma. Good color and capillary refill. No calf tenderness. Negative Homans. Objective Data Vital Signs Vital Signs: Vital Signs - 24 hr 08/20/21 13:00 08/20/21 13:15 08/20/21 13:30 Temperature 36.2 C L Pulse Rate 88 82 90 Respiratory Rate 12 14 15 Blood Pressure 113/66 104/69 118/72 Pulse Oximetry 100 100 97 08/20/21 13:45 08/20/21 14:00 08/20/21 14:15 Temperature Pulse Rate 89 84 85 Respiratory Rate 14 14 16 Blood Pressure 125/73 121/79 123/75 Pulse Oximetry 94 94 94 08/20/21 14:30 08/20/21 14:50 08/20/21 19:00 Temperature 36.6 C 36.8 C Pulse Rate 82 84 80 Respiratory Rate 12 20 16 Blood Pressure 124/71 121/70 108/62 Pulse Oximetry 94 96 95 08/20/21 20:00 08/21/21 00:10 08/21/21 00:11 Temperature 37.0 C Pulse Rate 80 86 86 Respiratory Rate 16 16 16 Blood Pressure 98/55 L Pulse Oximetry 95 95 95 08/21/21 03:45 Temperature 36.9 C Pulse Rate 96 Respiratory Rate 18 Blood Pressure 108/61 Pulse Oximetry 95 Intake/Output Intake/Output: Intake & Output 08/18/21 08/19/21 08/20/21 08/21/21 23:59 23:59 23:59 23:59 Intake Total 2950 1120 Output Total 1310 1100 Balance 1640 20 Meds/Results Medications: Active Medications Generic Name Dose Route Start Last Admin Trade Name Freq PRN Reason Stop Dose Admin Carisoprodol 350 mg 08/20/21 18:00 08/21/21 05:08 Carisoprodol (*Crx) 350 Mg Tablet PO 350 mg Q6HR DIVYA Administration Diazepam 5 mg 08/20/21 12:46 08/20/21 21:20 Diazepam (*Crx) 5 Mg Tablet PO 5 mg TID PRN Administration Anxiety Docusate Sodium 100 mg 08/20/21 21:00 08/21/21 07:22 Docusate Sodium 100 Mg Capsule PO 100 mg Q12HR DIVYA Administration Enoxaparin Sodium 40 mg 08/20/21 19:00 08/20/21 19:03 Enoxaparin 40 Mg/0.4 Ml Syringe SUB-Q 40 mg QPM DIVYA Administration Lactated Ringer's 1,000 mls @ 125 mls/hr 08/20/21 12:50 08/21/21 07:21 Lr - Lactated Ringers Iv IV CONT 125 mls/hr .Q8H DIVYA Administration Morphine Sulfate 2 mg 08/20/21 12:46 08/21/21 07:21 Morphine Sulfate (*Crx) 2 Mg/Ml Inj IV PUSH 2 mg Q2H PRN Administration Pain Ondansetron HCl 4 mg 08/20/21 12:46 Ondansetron Inj 4 Mg/2 Ml Vial IV PUSH Q6H PRN Nausea Oxycodone/Acetaminophen 1 - 2 tablet 08/20/21 12:46 08/21/21 03:37 Oxycodone/Acetaminophen (*Crx)
[2021-08-21 18:40] VITALS: BP 126/74; PULSE 100; RESP 16; TEMP 37.2
[2021-08-21] MEDS: ENOXAPARIN 40 MG/0.4 ML SYRINGE SUB-Q (18:42)
[2021-08-22] MEDS: oxyCODONE/ACETAMINOPHEN (*CRX) 5-325 MG TABLET PO ×4 (00:03→17:23)
[2021-08-22] MEDS: carisoprodoL (*CRX) 350 MG TABLET PO ×3 (05:23→17:23)
[2021-08-22 06:20] VITALS: BP 109/67; PULSE 101; RESP 20; TEMP 36.2
--- NOTE | 2021-08-22 10:17 | WPDPN ---
Progress Note: A&P Assessment and Plan (1) Encounter for cosmetic surgery: Code(s): Z41.1 - Encounter for cosmetic surgery Status: Acute Assessment and Plan: Doing well after: 1. Bilateral breast augmentation mastopexy 2. Suction lipectomy of the lateral breasts 3. Suction lipectomy of saddlebags 4. Extended abdominoplasty 5. Suction lipectomy abdomen/flank Much improved from yesterday. Will d/c home. Today we had a lengthy discussion about the care. What to monitor for. Importance of ambulation / activity as she has chosen this for her DVT prophylaxis. Importance of deep breathing (she has IS). When to dial 911/ proceed to ER. Call with any questions or concerns. Subjective Date/time seen: 08/22/21 8:45am Overall much improved. She has been out of bed. Ambulated. Tolerating some p.o.. Moderate pain control. No fevers or chills. No nausea vomiting. No shortness of breath. No chest pain. No calf tenderness. She refused catheter removal and she understands the importance that we remove and she ambulate. She states overall much better and she believes she is improved enough to go home later today. Review of Systems Review of Systems: All systems reviewed & are unremarkable except as noted in HPI and below Exam Narrative: Alert and oriented no obvious distress Respiratory on labored Bilateral breasts are soft. No signs of infection. No hematoma. No seroma. Good color and capillary refill. Healing well. Abdomen is healing well. No signs of infection. No hematoma. No seroma. Good color and capillary refill. No calf tenderness. Negative Homans. Objective Data Vital Signs Vital Signs: Vital Signs - 24 hr 08/21/21 18:40 08/22/21 06:20 Temperature 37.2 C 36.2 C L Pulse Rate 100 101 H Respiratory Rate 16 20 Blood Pressure 126/74 109/67 Intake/Output Intake/Output: Intake & Output 08/19/21 08/20/21 08/21/21 08/22/21 23:59 23:59 23:59 23:59 Intake Total 2950 1870 600 Output Total 1310 3950 1500 Balance 7269 -4973 -928 Meds/Results Medications: Active Medications Generic Name Dose Route Start Last Admin Trade Name Freq PRN Reason Stop Dose Admin Carisoprodol 350 mg 08/20/21 18:00 08/22/21 05:23 Carisoprodol (*Crx) 350 Mg Tablet PO 350 mg Q6HR DIVYA Administration Diazepam 5 mg 08/20/21 12:46 08/20/21 21:20 Diazepam (*Crx) 5 Mg Tablet PO 5 mg TID PRN Administration Anxiety Docusate Sodium 100 mg 08/20/21 21:00 08/21/21 18:41 Docusate Sodium 100 Mg Capsule PO 100 mg Q12HR DIVYA Administration Enoxaparin Sodium 40 mg 08/20/21 19:00 08/21/21 18:42 Enoxaparin 40 Mg/0.4 Ml Syringe SUB-Q 40 mg QPM DIVYA Administration Morphine Sulfate 2 mg 08/20/21 12:46 08/21/21 07:21 Morphine Sulfate (*Crx) 2 Mg/Ml Inj IV PUSH 2 mg Q2H PRN Administration Pain Ondansetron HCl 4 mg 08/20/21 12:46 Ondansetron Inj 4 Mg/2 Ml Vial IV PUSH Q6H PRN Nausea Oxycodone/Acetaminophen 1 - 2 tablet 08/20/21 12:46 08/22/21 05:23 Oxycodone/Acetaminophen (*Crx) 5-325 Mg Tablet PO 2 tablet Q6H PRN Administration Pain
--- NOTE | 2021-08-22 10:23 | P.DS_ITS ---
DS: Admitting Diagnosis Discharge Date 08/22/2021 Admitting Diagnosis Encounter for cosmetic surgery DS: Discharge Diagnosis Discharge Diagnosis (1) Encounter for cosmetic surgery: Code(s): Z41.1 - Encounter for cosmetic surgery Status: Acute DS: Summary Hospital Course Hospital Course: Overall has done very well after: 1. Bilateral breast augmentation mastopexy 2. Suction lipectomy of the lateral breasts 3. Suction lipectomy of saddlebags 4. Extended abdominoplasty 5. Suction lipectomy abdomen/flank The first day she didn't feel like she could care for herself at home. Stayed a second night. Much improved. Ambulating. Pain controlled. Tolerating diet. Will d/c home and follow-up. Time Spent with Patient Time attestation: Total time spent providing and/or coordinating discharge services: Exam Narrative: Alert and oriented no obvious distress Respiratory on labored Bilateral breasts are soft. No signs of infection. No hematoma. No seroma. Good color and capillary refill. Healing well. Abdomen is healing well. No signs of infection. No hematoma. No seroma. Good color and capillary refill. No calf tenderness. Negative Homans. Discharge Plan Discharge Patient Disposition: Home, Self-Care Discharge Instructions: POST OPERATIVE DISCHARGE INSTRUCTIONS RICHARD FELDER M.D. [facility] [address] [place] [address] * No driving for 24 hours after anesthesia and while you are taking pain medication. * Take all prescribed medication as directed * Diet as tolerated. * No lifting or activity that raises blood pressure for 48 hours. * Regular walking / ambulation. * May shower. Once you shower do not take pain medication before showering as the combination of medication and heat may cause you to feel dizzy or pass out. * No pools or tubs for 2 weeks. * Call with any questions or concerns. * No lifting over 20 lb or straining for 6 weeks * Slowly stand up straight over the week as tolerated * Dressing Care: Continue surgical bra/abdominal binder 23 hours per day. If you have any questions or concerns, please call the office . If it is after hours you will be directed to the urban and regional planner exchange. Shortness of breath, chest pain, or other medical emergency dial 911 / proceed to the Emergency Room. Stand Alone Forms: General Discharge Instructions Follow-up/Referrals: Richard Felder MD [Physician] - 1 Week Discharge Medications: Continued docusate sodium [Colace] 100 mg capsule 100 mg PO DAILY Qty: 14 RF: 0 ondansetron HCl 4 mg tablet 4 mg PO Q8H Qty: 21 RF: 0 carisoprodol [Soma] 350 mg tablet 350 mg PO TID PRN (Reason: muscle pain) Qty: 21 RF: 0 oxycodone-acetaminophen [Percocet] 5-325 mg tablet 1 tablet PO Q6H PRN (Reason: pain) Qty: 30 RF: 0 multivitamin Tablet 1 tablet PO DAILY RF: 0
--- NOTE | 2021-08-22 10:49 | WPDANESPN ---
Anes - Prog Note Post-Op Date/Time: 08/22/21 10:49 Cardiovascular status: normal Respiratory status: normal Airway patency: baseline Mental status: baseline Post-Op hydration status: normal Vital Signs: Last Vital Signs Temp 97.1 F L 08/22/21 06:20 Pulse 101 H 08/22/21 06:20 Resp 20 08/22/21 06:20 BP 109/67 08/22/21 06:20 Pulse Ox 95 08/21/21 03:45 Pain Score (VAS): 0 I/O: Intake & Output 08/21/21 08/22/21 08/22/21 23:59 07:59 15:59 Intake Total 750 600 Output Total 2850 1500 Balance -2100 -900 Patient Feedback: Patient satisfied with anesthetic care.
[2021-08-22] MEDS: DOCUSATE SODIUM 100 MG CAPSULE PO (11:42)
== END 2021-08-22 17:35 | disposition home or self-care (01) ==
LOC: ANHSURGERY 15:03 → ANHOB2 15:04
PROVIDERS: PCP Nurse Practitioner Family; Visit Provider Surgery Plastic and Reconstructive Surgery
PROC: (CPT 19325; principal; 2021-08-20 07:30)
PROC: (CPT 19325; 2021-08-20 07:30)
PROC: (CPT 15877; 2021-08-20 07:30)
DX: Z41.1 Encounter for cosmetic surgery (principal); N64.82 Hypoplasia of breast; N64.81 Ptosis of breast; L57.4 Cutis laxa senilis; E65 Localized adiposity; Z85.41 Personal history of malignant neoplasm of cervix uteri; Z87.891 Personal history of nicotine dependence; F12.90 Cannabis use, unspecified, uncomplicated
CPT/HCPCS: 19325; 19316; 15877; 15830; 15847; 80307; 99199; A9270; J0171; J0330; J0690; J1100; J1170; J1580; J1650; J2250; J2270; J2405; J2704; J3010; J7120

== ENCOUNTER 2021-09-14 00:19 | Day surgery (SDC) | payer OTHER, SELFPAY ==
[2021-09-13 11:55] VITALS: BMI 28.7
--- NOTE | 2021-09-13 11:59 | PC.NURSE ---
Report to the Outpatient Waiting Room, entrance under the green pavilion located off [facility], at time 1015 on date 09/14/21. OR Time: 1230. - You and your visitor will be asked a series of questions to screen for COVID 19 for your protection. - A mask is required within the hospital. One visitor will be allowed to accompany the patient into the hospital. Patients visitor will be instructed to remain with patient at all times or leave the building. We will allow the visitor to come back to the postoperative area when patient is ready. Preoperative COVID Testing Requirements: RAPID COVID 09/14 AT 1015 No COVID Test needed if: (proof is required; if not received patient will have Rapid Test prior to entry) - Patient has received COVID Vaccine at least 14 days prior to procedure date or - Patient has positive COVID test result within last 90 days of surgery date. COVID Test needed if above criteria is not met If not COVID vaccinated a COVID test must be conducted within 72 hours of surgery and patient is asked to isolate self from time of testing until procedure. You will go to the [facility] for your COVID testing. The [facility] site is located at the corner of [address] [facility]. You will only be called if COVID results are positive and your surgeon may reschedule your elective surgery date. Patients may have clear liquids (water, carbonated beverages, clear teas, apple juice) until 3 hours prior to surgery with a maximum of 20 ounces. - No food from midnight until time of surgery Take the following medications with a SIP of water the morning of surgery: NONE Medications to discontinue per physician: VITAMINS/SUPPLEMENTS Date to take last dose: NO MORE UNTIL AFTER SURGERY Please no make-up, nail welsh, hairspray, perfume, deodorant, or body powder the day of surgery. No jewelry (including any body piercings) or valuables the day of surgery, leave them at home. Please take a shower or bath the night before, or the morning of, surgery with an antibacterial soap. Wear comfortable, loose fitting clothing. - Jewelry must be removed prior to entering the operating room. Rings and piercings that are not removed may be cut off. - The hospital will not accept responsibility for valuables. - Please leave all valuables, including medications, at home the day of surgery. If you are going home after surgery, a licensed local driver must drive you home. - NO public transportation without another adult. - We recommend that an adult stay with you for 24 hours following discharge. - We also recommend that you do not drive, make important decision, drink alcoholic beverages, or take any drugs that were not prescribed by your health care provider for at least 24 hours after your discharge time. Follow any additional instructions given to you from your surgeon. Telephone instructions given to GÉNESIS COONEY and asked if any additional questions and then verbalized understanding. Patient advised to call surgeon office or pre surgery nurse liaison [phone] if any additional questions.
[2021-09-14] VITALS (7 sets, daily range): BP systolic 106–120; BP diastolic 50–72; PULSE 72–91; RESP 14–18; TEMP 36.2–36.6; O2SAT 95–100
[2021-09-14] MEDS: LACTATED RINGERS 1,000 ML 30 ML IV CONT (11:15)
--- NOTE | 2021-09-14 11:23 | P.PNAN_ITS ---
Anes - Initial Pre Proc Eval Procedure: Operation Date: 09/14/21 12:30 Proposed Procedures p Left Breast Implant Exchange with Washout - Richard Felder MD Date/Time: 09/14/21 11:23 Surgeon: Richard Felder MD Pre Op Diagnosis: hx of breast augmentation Patient Data Age: 41 Gender: F Height: 1.7 m Weight: 83.1 kg Allergies Allergy/AdvReac Type Severity Reaction Status Date / Time aspirin Allergy Mild Difficulty Verified 09/13/21 16:41 Breathing Home Medications Medication Instructions Recorded Confirmed Type multivitamin 1 tablet PO DAILY 08/10/21 09/13/21 History shejlerw-rmsual-gjjxxono acid 1 cap PO DAILY 09/13/21 09/13/21 History [Collagen 1500 Plus C] vitamin B complex [B 1 tablet PO DAILY 09/13/21 09/13/21 History Complex-Vitamin B12] Patient hx anesthesia problems: none Family hx anesthesia problems: none Results Review: All pre-operative results and documents have been reviewed as part of the pre-operative evaluation. [facility] Past Medical History Medical History Hx of cervical cancer Smoker Tobacco abuse Surgical History Surgical History (Updated 09/14/21 @ 11:24 by Alex Olivas MD) H/O breast augmentation H/O transurethral destruction of bladder lesion Hx of cystoscopy Hx of foot surgery Family History Family History Grandparent Diabetes mellitus Social History Social History Smoking packs per day: 0.5 Smoking cigarettes per day: 10.0 Years smoked: 15 Smoking pack-years: 7.50 Smoking status: Former smoker Tobacco type: cigarettes Second hand tobacco smoke exposure: No Alcohol intake: current Drinks per week: 5 Substance use: current Substance use type: marijuana Spiritual care concerns: No Anes - Eval Final PreProcedure Day of Procedure 09/14/21 11:23 Patient weight: overweight Heart: regular rate and rhythm Lungs: clear to auscultation Airway: Mallampati scale class 1 Neurological: alert and oriented Last oral intake: >/= 8 hours ASA classification: II Emergent: no Anesthetic plan: proceed Anesthesia type and monitoring: general LMA and standard monitoring Results Review: All pre-operative results and documents have been reviewed as part of the pre-operative evaluation. Informed Consent: The patient's anesthetic plan and its attendant risks and benefits were discussed with the patient/family/POA. Questions were solicited and answers provided to the satisfaction of the patient/family/POA.
--- NOTE | 2021-09-14 11:24 | WPDHPUPDATE1 ---
History and Physical Update Update Date/Time: 09/14/21 11:24 History and Physical has been reviewed, including an updated exam of the patient. There are NO changes in the patient's condition. Risks, benefits, and alternatives have been discussed and questions answered. Patient agrees to proceed with procedure.
--- NOTE | 2021-09-14 11:31 | W.PM.PROC2 ---
Procedure Note - Detailed Date of Procedure 09/14/21 Pre-op Diagnosis hx of breast augmentation Post-op Diagnosis Same Procedure Performed Debridement and closure left breast IMF t junction Surgeon Richard Felder MD Anesthesia General Findings No implant exposure. No signs of infection. Wound completely excised and closed. Description of Procedure She would like proceed with exploration, possible implant exchange, possible washout and closure left breast. Previously and again today the risks, benefits, alternatives were discussed in great detail. She understands there is not a frankly exposed implant. There is no clear evidence of implant infection. She understands this is a threatened exposure. After hearing all of her options she would like proceed with surgical exploration. All questions were answered to her satisfaction today. She voiced a clear understanding. Consent obtained. She was taken to the operating room placed supine on the operating room table. Anesthesia provided by anesthesiology. Prepped and draped in a standard sterile fashion. 1% lidocaine with epinephrine was used anesthetize locally. A 15 blade used to completely excise the wound. At this point we explored the base and it was clear that there was no exposed deep structures. No implant exposure. No sinus tracts identified. No signs of infection. No other concerns. I copiously irrigated with saline solution and verified strict hemostasis. I then irrigated with triple antibiotic Betadine solution. This was closed using 3-0 Monocryl followed by running subcuticular 4-0 Monocryl and Steri-Strips. Woken taken to PACU without difficulty. All instrument sponge counts were correct at the end of the case. Estimated Blood Loss 5 Drains No Packing No Pathology None sent Complications No immediate complications Condition Stable Disposition PACU
[2021-09-14] MEDS: ceFAZolin 2 GM/D5W 50 ML 2 GM/50 ML BAG IVPB (11:45)
[2021-09-14] MEDS: SCOPOLAMINE 1.5 MG PATCH TRANSDERM (12:00)
[2021-09-14] MEDS: NACL 0.9% IRRIG POUR BOTTLE 900 ML, GENTAMICIN SULFATE INJ 160 MG, ceFAZolin 2 GM, POVI... IRRIGATION (12:17)
[2021-09-14] MEDS: BUPIVACAINE HCL 0.25% PF 30 ML VIAL 15 ML INFILTRATE (12:19)
[2021-09-14] MEDS: LIDO 1%/EPINEPHRINE/PF 1:200,000 30 ML VIAL 15 ML XX (12:19)
[2021-09-14] MEDS: fentaNYL CITRATE INJ (*CRX) 100 MCG/2 ML VIAL 25 MCG IV PUSH ×6 (12:36→13:15)
[2021-09-14] MEDS: oxyCODONE HCL (*CRX) 5 MG TAB IR PO (13:45)
== END 2021-09-14 14:35 | disposition home or self-care (01) ==
PROVIDERS: PCP Nurse Practitioner Family; Visit Provider Surgery Plastic and Reconstructive Surgery
PROC: (CPT 19342; principal; 2021-09-14 12:30)
DX: T81.31XA Disruption of external operation (surgical) wound, not elsewhere classified, initial encounter (principal); Y83.8 Other surgical procedures as the cause of abnormal reaction of the patient, or of later complication, without mention of misadventure at the time of the procedure; Z98.82 Breast implant status; Z87.891 Personal history of nicotine dependence
CPT/HCPCS: 13160; A9270; J0690; J1100; J1170; J1580; J2250; J2405; J2704; J3010; J7120

== ENCOUNTER 2021-09-14 10:04 | Outpatient (CLI) | payer OTHER, SELFPAY ==
[2021-09-14 10:45] LABS: EDCOVIDSCREEN Negative (Negative)
== END 2021-09-14 10:05 | disposition home or self-care (01) ==
LOC: ANHSURGERY 10:07
PROVIDERS: PCP Nurse Practitioner Family; Visit Provider Surgery Plastic and Reconstructive Surgery
DX: Z01.812 Encounter for preprocedural laboratory examination (principal); Z20.822 Contact with and (suspected) exposure to COVID-19
CPT/HCPCS: 87426; C9803

== ENCOUNTER 2022-02-10 04:03 | Emergency (ER) | payer OTHER, SELFPAY ==
[2022-02-10] VITALS (19 sets, daily range): BP systolic 106–135; BP diastolic 53–76; PULSE 102–140; RESP 11–25; TEMP 37.8; O2SAT 95–100
--- NOTE | 2022-02-10 05:14 | ED.GENADULT ---
HPI - General Adult General Chief complaint: Urogenital-Female Stated complaint: bladder infection, fever Time Seen by Provider: 02/10/22 05:06 History of Present Illness HPI narrative: Patient 41-year-old female who presents the emergency department with chief complaint of fever nausea and vomiting and UTI. The patient reports she has history of cystitis and reports that she started having symptoms last couple of days she talked to her urologist Dr. Godfrey and was started on Macrobid the patient states that she got the first dose down and then started having severe nausea and vomiting is been unable to tolerate p.o. intake. The patient reports no localizing pain reports no prior history of stones. The patient reports symptoms are worsened whenever she tries to take p.o. intake patient reports that its been multiple hours since her last dose of Tylenol. Related Data Home Medications Medication Instructions Recorded Confirmed multivitamin 1 tablet PO DAILY 08/10/21 09/14/21 collagen,hydrolysate 500 mg-biotin 1 cap PO DAILY 09/13/21 09/14/21 800 mcg-ascorbic acid 50 mg capsule (Collagen 1500 Plus C) vitamin B complex (B 1 tablet PO DAILY 09/13/21 09/14/21 Complex-Vitamin B12 tablet) Allergies Allergy/AdvReac Type Severity Reaction Status Date / Time aspirin Allergy Mild Difficulty Verified 02/10/22 06:19 Breathing Review of Systems Review of Systems: A 10 system review of systems was completed on the patient and is negative except for what is stated in the HPI. Nursing and ancillary documentation was reviewed. PMFSH Past Medical History Medical History Hx of cervical cancer Smoker Tobacco abuse Surgical History Surgical History H/O breast augmentation H/O transurethral destruction of bladder lesion Hx of cystoscopy Hx of foot surgery Family History Family History Grandparent Diabetes mellitus Social History Social History Smoking packs per day: 0.5 Smoking cigarettes per day: 10.0 Years smoked: 15 Smoking pack-years: 7.50 Smoking status: Former smoker Tobacco type: cigarettes Second hand tobacco smoke exposure: No Alcohol intake: current Drinks per week: 5 Substance use: current Substance use type: marijuana Gender identity (if verbalized by the patient): Female Sexual Orientation (if Verbalized by the Patient): Straight or Heterosexual Spiritual care concerns: No Exam Narrative: GENERAL: Well-appearing, well-nourished, and in no acute distress. HEAD: Normocephalic, atraumatic. EYES: PERRLA and EOMI. ENT: Nares clear, no rhinorrhea or epistaxis. Mucous membranes moist. NECK: Supple. CHEST: Clear to auscultation. No respiratory distress. HEART: Regular rate and rhythm. No murmur heard. Normal peripheral pulses. ABDOMEN: Soft, nontender, nondistended, normal active bowel sounds. EXTREMITIES: Normal range of motion. No edema. SKIN: Warm, dry, no rash. NEURO: No focal deficits. Alert and oriented x3. PSYCH: Normal mood and affect. Course Course Emergency Course: After receiving IV fluids and antipyretics the patient is feeling much better still has a little bit of a headache. Patient was given a dose of IV Rocephin in the emergency department and will be started on p.o. Keflex for home in place of the Macrobid. Vital Signs Vital signs: Vital Signs Temperature 37.8 C H 02/10/22 04:42 Pulse Rate 140 H 02/10/22 04:42 Respiratory Rate 22 H 02/10/22 04:42 Blood Pressure 121/53 L 02/10/22 04:42 Pulse Oximetry 100 02/10/22 04:42 Oxygen Delivery Room Air 02/10/22 04:42 Temperature 37.8 C H 02/10/22 04:42 Pulse Rate 119 H 02/10/22 05:54 Respiratory Rate 02/10/22 05:54 Blood Press
[2022-02-10] MEDS: SODIUM CHLORIDE 0.9% IV 1,000 ML 999 ML IV CONT (05:28)
[2022-02-10] MEDS: ONDANSETRON INJ 4 MG/2 ML VIAL IV PUSH (05:29)
[2022-02-10 05:41] LABS: Lactic Acid Reflex 1.2 mmol/L (0.7-2.0)
[2022-02-10 05:44] LABS: Alanine Aminotransferase 24 U/L (6-35); Albumin Level 4.1 g/dL (3.5-5.1); Alkaline Phosphatase 103 U/L (38-126); Anion Gap 15 mmol/L (8-16); Aspartate Amino Transferase 32 U/L (14-36); Bilirubin,Total 0.7 mg/dL (0.2-1.3); Blood Urea Nitrogen 11 mg/dL (7-17); Calcium 9.3 mg/dL (8.4-10.2); Carbon Dioxide 22 mmol/L (22-30); Chloride 100 mmol/L (98-107); Estimated Glomerular Filt Rate > 60; Glucose 122 mg/dL (65-110); Potassium 3.6 mmol/L (3.4-5.0); Sodium 137 mmol/L (137-145)
[2022-02-10 06:07] LABS: Hematocrit 36.8 % (37.0-47.0); Mean Corpuscular HGB Conc 32.6 g/dl (32-36); Mean Corpuscular Hemoglobin 27.5 pg (26-34); Mean Corpuscular Volume 84.4 fl (80-100); Mean Platelet Volume 10.2 fl (7.4-10.4); Platelet Count Result 195 k/mm3 (150-375); Red Blood Count 4.36 M/mm3 (4.2-5.4); Red Cell Distribution Width 15.9 % (11.5-14.5)
[2022-02-10 06:14] LABS: Band Neutrophils Percent 30 % (0-6); Basophils Percent Manual 0 % (0-1); Eosinophils Percent Manual 0 % (0-4); Lymphocytes Absolute Manual 5.12 K/mm3 (1.1-4.5); Lymphocytes Percent Manual 32 % (18-44); Monocytes Absolute Manual 0.32 K/mm3 (0.1-0.90); Monocytes Percent Manual 2 % (3-9); Neutrophils Absolute Manual 10.56 K/mm3 (1.7-7.2); Neutrophils Percent Manual 36 % (46-73); Total Cells Counted 100
[2022-02-10 06:15] LABS: Hypochromasia 1+ (NORMAL); Platelet Estimate Adequate (Adequate)
[2022-02-10 06:15] LABS: Appearance Urine Clear (Clear); Bilirubin Urine 1+ (Negative); Blood Urine 2+ (Negative); Color Urine Yellow (Yellow); Glucose Urine UA Negative (Negative); Ketones Urine Negative (Negative); Leukocyte Esterase Ur Negative LEU/UL (Negative); Nitrate Urine Negative (Negative); Protein Urine 3+ mg/dL (Negative); Urobilinogen Urine 0.2 mg/dL (<2.0)
[2022-02-10 06:26] LABS: Mucus Urine Rare /lpf; WBC Urine 21-30 /hpf
[2022-02-10 06:42] LABS: Add Urine Microscopic? YES
[2022-02-10] MEDS: MORPHINE SULFATE (*CRX) 4 MG/ML INJ IV PUSH (06:45)
== END 2022-02-10 07:06 | disposition home or self-care (01) ==
PROVIDERS: Emergency Provider Emergency Medicine; PCP Nurse Practitioner Family
DX: N39.0 Urinary tract infection, site not specified (principal); Z85.41 Personal history of malignant neoplasm of cervix uteri; Z87.891 Personal history of nicotine dependence; F12.90 Cannabis use, unspecified, uncomplicated
CPT/HCPCS: 36415; 80053; 81001; 81025; 83605; 85025; 87086; 96361; 96365; 96375; 99284; J0131; J0696; J2270; J2405; J7030

== ENCOUNTER 2022-02-18 00:42 | Day surgery (SDC) | payer OTHER, SELFPAY ==
[2022-02-11 08:28] VITALS: BMI 26.9
--- NOTE | 2022-02-11 08:36 | PC.NURSE ---
Report to the Outpatient Waiting Room, entrance under the green pavilion located off [facility], at time _0600_ on date _02/18/22_. OR Time: _0730_. Time changes happen often and if your time is changed the preop area will call you the afternoon before. - You and your visitor will be asked to self-screen and do not enter if you have any COVID symptoms. - Only one visitor and NO children visitors are allowed at this time. - The patient visitor is requested to leave or wait in car when not with patient due to restrictions. - A mask is required within the hospital. Patients may have clear liquids (water, carbonated beverages, clear teas, apple juice) until 3 hours prior to surgery with a maximum of 20 ounces. - No food from midnight until time of surgery - Infants may have breast milk until 4 hours before surgery, infant formula 6 hours prior to surgery. - Children will be allowed to drink immediately following surgery. If applicable, please bring a bottle or sippy cup to assist with drinking. Juice, water, soda, and popsicles are readily available. For infants on formula, please bring formula the day of surgery. Pacifiers are allowed. Take the following medications with a SIP of water the morning of surgery: PAIN/ NAUSEA MEDICATION IF NEEDED Medications to discontinue per physician PATIENT TO CALL DR. CESAR ABOUT HER ASPIRIN, STOP VITAMINS AND SUPPLIMENTS 02/15/22 Date to take last dose Please no make-up, nail romansh, hairspray, perfume, deodorant, or body powder the day of surgery. No jewelry (including any body piercings) or valuables the day of surgery, leave them at home. Please take a shower or bath the night before, or the morning of, surgery with an antibacterial soap. Wear comfortable, loose fitting clothing. Children are encouraged to wear pajamas. - Jewelry must be removed prior to entering the operating room. Rings and piercings that are not removed may be cut off. - The hospital will not accept responsibility for valuables. - Please leave all valuables, including medications, at home the day of surgery. If you are going home after surgery, a licensed reefer truck driver must drive you home. - NO public transportation without another adult. - We recommend that an adult stay with you for 24 hours following discharge. - We also recommend that you do not drive, make important decision, drink alcoholic beverages, or take any drugs that were not prescribed by your health care provider for at least 24 hours after your discharge time. For Pediatric surgeries, we recommend two adults accompany the child home (only one inside the building at this time). Follow any additional instructions given to you from your surgeon. If you or anyone in your household have experienced Covid symptoms in the past week, please notify your surgeon or the nurse liaison at the phone number below for possible testing. Telephone instructions given to _PATIENT_and asked if any additional questions and then verbalized understanding. Patient advised to call surgeon office or pre surgery nurse liaison [phone] if any additional questions.
--- NOTE | 2022-02-11 08:43 | PC.NURSE ---
PT STATES ALLERGY TO ASPIRIN WAS A CHILD, CURRENTLY TAKING ASPIRIN WITHOUT REACTION
--- NOTE | 2022-02-13 06:11 | PM.IMHP ---
H&P: HPI History of Present Illness Date/Time: 02/13/22 06:11 Chief Complaint: Eosinophilic cystitis Narrative: history of eosinophilic cystitis. Ready for another steroid injection Review of Systems Review of Systems: All systems reviewed & are unremarkable except as noted in HPI and below PMFSH Past Medical History Medical History Hx of cervical cancer Smoker Tobacco abuse Surgical History Surgical History H/O breast augmentation H/O transurethral destruction of bladder lesion Hx of cystoscopy Hx of foot surgery Family History Family History Grandparent Diabetes mellitus Social History Social History Smoking packs per day: 0.5 Smoking cigarettes per day: 10.0 Years smoked: 10 Smoking pack-years: 5.00 Smoking status: Former smoker Tobacco type: cigarettes Second hand tobacco smoke exposure: No Additional smoking assessment comments: STOPPED 2020 Alcohol intake: former Drinks per week: 5 Substance use: never Substance use type: marijuana Gender identity (if verbalized by the patient): Female Sexual Orientation (if Verbalized by the Patient): Straight or Heterosexual Spiritual care concerns: No Meds Home Medications and Allergies Home Medications Medication Instructions Recorded Confirmed Type multivitamin 1 tablet PO DAILY 08/10/21 02/11/22 History collagen,hydrolysate 500 mg-biotin 1 cap PO DAILY 09/13/21 02/11/22 History 800 mcg-ascorbic acid 50 mg capsule (Collagen 1500 Plus C) vitamin B complex (B 1 tablet PO DAILY 09/13/21 02/11/22 History Complex-Vitamin B12 tablet) oxycodone-acetaminophen 5 mg-325 1 tablet PO Q6H PRN pain #30 tabs 09/25/21 02/11/22 Rx mg tablet (Percocet) cephalexin 500 mg capsule 500 mg PO Q8H 7 days #21 caps 02/10/22 02/11/22 Rx acetaminophen 325 mg capsule 325 mg PO Q6H PRN PAIN/FEVER 02/11/22 02/11/22 History (Tylenol) aspirin 325 mg tablet 325 mg PO DAILY 02/11/22 02/11/22 History calcium carbonate 500 mg calcium 500 mg PO BID 02/11/22 02/11/22 History (1,250 mg) chewable tablet cyclobenzaprine 10 mg tablet 10 mg PO TID PRN Muscle Pain 02/11/22 02/11/22 History ondansetron HCl 4 mg tablet 4 mg PO Q6H PRN Nausea 02/11/22 02/11/22 History Allergies Allergy/AdvReac Type Severity Reaction Status Date / Time No Known Allergies Allergy Verified 02/11/22 08:43 Exam Narrative: NAD normal breathing A+O x3 Assessment and Plan Assessment and plan (1) Eosinophilic cystitis: Code(s): N30.80 - Other cystitis without hematuria; D72.18 - Eosinophilia in diseases classified elsewhere Status: Acute Assessment and Plan: cyst/biopsy/steroid injeciton bleeding, infection, lack of efficacy, non presence of ulcer discussed
[2022-02-18 06:09] VITALS: BP 110/47; PULSE 95; RESP 16; TEMP 36.2; O2SAT 97
[2022-02-18] MEDS: LACTATED RINGERS 1,000 ML 30 ML IV CONT (06:28)
--- NOTE | 2022-02-18 06:39 | SUR.PREOP ---
PT WEARING WALKING BOOT ON RIGHT FOOT FROM PREVIOUS INJURY. ELEVATED ON PILLOW.
--- NOTE | 2022-02-18 07:00 | WPDANESEPPF ---
Anes - Initial Pre Proc Eval Procedure: Operation Date: 02/18/22 07:30 Proposed Procedures p Cystoscopy Bladder Biopsy with Steroid Injection - Wilbert Godfrey MD Date/Time: 02/18/22 07:00 Surgeon: Wilbert Godfrey MD Pre Op Diagnosis: hunters ulcers Patient Data Age: 41 Gender: F Height: 1.7 m Weight: 78.5 kg Last Vital Signs Temp 36.2 C L 02/18/22 06:09 Pulse 95 02/18/22 06:09 Resp 16 02/18/22 06:09 BP 110/47 L 02/18/22 06:09 Pulse Ox 97 02/18/22 06:09 O2 Del Method Room Air 02/18/22 06:09 Allergies Allergy/AdvReac Type Severity Reaction Status Date / Time No Known Allergies Allergy Verified 02/18/22 06:34 Home Medications Medication Instructions Recorded Confirmed Type multivitamin 1 tablet PO DAILY 08/10/21 02/18/22 History collagen,hydrolysate 500 mg-biotin 1 cap PO DAILY 09/13/21 02/18/22 History 800 mcg-ascorbic acid 50 mg capsule (Collagen 1500 Plus C) vitamin B complex (B 1 tablet PO DAILY 09/13/21 02/18/22 History Complex-Vitamin B12 tablet) oxycodone-acetaminophen 5 mg-325 1 tablet PO Q6H PRN pain #30 tabs 09/25/21 02/18/22 Rx mg tablet (Percocet) cephalexin 500 mg capsule 500 mg PO Q8H 7 days #21 caps 02/10/22 02/18/22 Rx acetaminophen 325 mg capsule 325 mg PO Q6H PRN PAIN/FEVER 02/11/22 02/18/22 History (Tylenol) aspirin 325 mg tablet 325 mg PO DAILY 02/11/22 02/18/22 History calcium carbonate 500 mg calcium 500 mg PO BID 02/11/22 02/18/22 History (1,250 mg) chewable tablet cyclobenzaprine 10 mg tablet 10 mg PO TID PRN Muscle Pain 02/11/22 02/18/22 History ondansetron HCl 4 mg tablet 4 mg PO Q6H PRN Nausea 02/11/22 02/18/22 History Patient hx anesthesia problems: none Family hx anesthesia problems: none Results Review: All pre-operative results and documents have been reviewed as part of the pre-operative evaluation. [facility] Past Medical History Medical History Hx of cervical cancer Smoker Tobacco abuse Surgical History Surgical History H/O breast augmentation H/O transurethral destruction of bladder lesion Hx of cystoscopy Hx of foot surgery Family History Family History Grandparent Diabetes mellitus Social History Social History Smoking packs per day: 0.5 Smoking cigarettes per day: 10.0 Years smoked: 10 Smoking pack-years: 5.00 Smoking status: Former smoker Tobacco type: cigarettes Second hand tobacco smoke exposure: No Additional smoking assessment comments: STOPPED 2020 Alcohol intake: former Drinks per week: 5 Substance use: never Substance use type: marijuana Living arrangements: with family Gender identity (if verbalized by the patient): Female Sexual Orientation (if Verbalized by the Patient): Straight or Heterosexual Spiritual care concerns: No Anes - Eval Final PreProcedure Day of Procedure 02/18/22 07:00 Patient weight: overweight Heart: regular rate and rhythm Lungs: clear to auscultation Airway: Mallampati scale class 1 Neurological: alert and oriented Last oral intake: >/= 8 hours ASA classification: II Emergent: no Anesthetic plan: proceed Anesthesia type and monitoring: general LMA and standard monitoring Results Review: All pre-operative results and documents have been reviewed as part of the pre-operative evaluation. Informed Consent: The patient's anesthetic plan and its attendant risks and benefits were discussed with the patient/family/POA. Questions were solicited and answers provided to the satisfaction of the patient/family/POA.
--- NOTE | 2022-02-18 07:22 | WPDHPUPDATE1 ---
History and Physical Update Update Date/Time: 02/18/22 07:22 History and Physical has been reviewed, including an updated exam of the patient. There are NO changes in the patient's condition. Risks, benefits, and alternatives have been discussed and questions answered. Patient agrees to proceed with procedure.
[2022-02-18] MEDS: ceFAZolin 2 GM/D5W 50 ML 2 GM/50 ML BAG IVPB (07:29)
[2022-02-18] MEDS: LIDOCAINE HCL 2% GEL UROJET 10 ML PKG MUCOUS MEM (07:42)
[2022-02-18] MEDS: TRIAMCINOLONE ACET INJ 40 MG/ML VIAL 200 MG XX (07:46)
[2022-02-18 07:55] VITALS: BP 109/57; PULSE 88; RESP 20
--- NOTE | 2022-02-18 07:59 | W.PM.PROC2 ---
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 There was successfully treated with steroid injection in the past. She had recurrent symptoms. She is here today for repeat treatment. She understands risks of bleeding, infection, damage to the urinary tract, inability to resolve her symptoms. She agrees to proceed Findings Areas of inflammation on the floor of the bladder. Away from the ureteral orifices Description of Procedure She was correctly identified. Informed consent obtained. She from the operating room. She was given MAC anesthesia. She was placed in a dorsal lithotomy position. She was prepped and draped in a sterile fashion. Time-out performed. I examined her bladder. She had signs of radiation changes to her bladder. She had areas of inflammation on the floor of the bladder away from the trigone. She had a few dystrophic calcifications which I removed. Most of her inflammation was on the right floor of the bladder. I biopsied an area of inflammation. I generously fulgurated the lesion. All fulguration was done away from the orifice. I then injected steroids. I injected 5 cc of Kenalog 40 mg per mail. Of note the bladder was very stiff and it was more difficult than usual to actually inject a steroid. There is no bleeding under low insufflation pressures. Bladder was drained. She was awakened transferred to PACU in stable condition. Implants None Estimated Blood Loss 1 Packing No Pathology Yes (Bladder biopsy) Complications No immediate complications Condition Stable Disposition PACU
[2022-02-18] MEDS: SCOPOLAMINE 1.5 MG PATCH TRANSDERM (08:20)
[2022-02-18 08:25] VITALS: BP 104/70; PULSE 70; RESP 20
[2022-02-18 08:45] VITALS: BP 110/70; PULSE 75; RESP 20
== END 2022-02-18 08:52 | disposition home or self-care (01) ==
PROVIDERS: PCP Nurse Practitioner Family; Visit Provider Urology
PROC: 0TBB8ZX Excision of Bladder, Via Natural or Artificial Opening Endoscopic, Diagnostic (ICD-10-PCS; CPT 52204; principal; 2022-02-18 07:30)
DX: N30.10 Interstitial cystitis (chronic) without hematuria (principal); D72.18 Eosinophilia in diseases classified elsewhere; Z85.41 Personal history of malignant neoplasm of cervix uteri; Z87.891 Personal history of nicotine dependence
CPT/HCPCS: 52204; 52283; 88305; A9270; J0690; J2250; J2704; J3010; J3301; J7120

== ENCOUNTER 2022-03-23 01:09 | Day surgery (SDC) | payer OTHER, SELFPAY ==
[2022-03-22 09:05] VITALS: BMI 27.1
--- NOTE | 2022-03-22 09:08 | PC.NURSE ---
Report to the Outpatient Waiting Room, entrance under the green pavilion located off [facility], at time 0600 on date 03/23/22. Planned Procedure Time: 0730. Time changes happen often and if your time is changed the preop area will call you the afternoon before. - You and your visitor will be asked to self-screen and do not enter if you have any COVID symptoms. - We encourage only one visitor and NO visitors under age 16 are allowed at this time. Your visitor will receive communication by the phone number that is given day of service. - The patient visitor is requested to social distance or may leave the building when not with patient due to restrictions. - A mask is OPTIONAL within the hospital. Patients may have clear liquids (water, carbonated beverages, clear teas, apple juice) until 3 hours prior to surgery with a maximum of 20 ounces. - No food from midnight until time of surgery Take the following medications with a SIP of water the morning of surgery: PAIN PILL IF NEEDED Medications to discontinue per physician: N/A Date to take last dose: N/A Please no make-up, nail anguillan, hairspray, perfume, deodorant, or body powder the day of surgery. No jewelry (including any body piercings) or valuables the day of surgery, leave them at home. Please take a shower or bath the night before, or the morning of, surgery with an antibacterial soap. Wear comfortable, loose fitting clothing. - Jewelry must be removed prior to entering the operating room. Rings and piercings that are not removed may be cut off. - The hospital will not accept responsibility for valuables. - Please leave all valuables, including medications, at home the day of surgery. If you are going home after surgery, a licensed coach tour driver must drive you home. - NO public transportation without another adult. - We recommend that an adult stay with you for 24 hours following discharge. - We also recommend that you do not drive, make important decision, drink alcoholic beverages, or take any drugs that were not prescribed by your health care provider for at least 24 hours after your discharge time. Follow any additional instructions given to you from your surgeon. If you or anyone in your household have experienced Covid symptoms in the past week, please notify your surgeon or the nurse liaison at the phone number below for possible testing. Telephone instructions given to PT - GÉNESIS COONEY and asked if any additional questions and then verbalized understanding. Patient advised to call surgeon office or pre surgery nurse liaison [phone] if any additional questions.
[2022-03-23] VITALS (9 sets, daily range): BP systolic 95–123; BP diastolic 53–74; PULSE 64–91; RESP 7–18; TEMP 36.2–36.3; O2SAT 94–100
--- NOTE | ~2022-03-23 | XR_ITS ---
EXAMINATION: XR fluoroscopy no charge DATE: 03/23/2022 08:00 INDICATION: Right stone extraction TECHNIQUE: 3 fluoroscopic images of the abdomen and pelvis were obtained during procedure performed bruna Al. Radiologist was not present for the imaging or procedure. The amount of fluoroscopy will e used during this procedure was 0.7 minutes. COMPARISON: None. FINDINGS: Images demonstrate cannulation of the right ureter advancement of a wire into the collecting system o f the right kidney. A couple phleboliths in the left hemipelvis. No evident renal stones. IMPRESSION: 1. Fluoroscopy utilized during reported right renal stone extraction with no stones evident on the pr ovided fluoroscopic images. Correlate with procedure note. Reviewed, dictated and finalized at location A. IMPRESSION: 1. Fluoroscopy utilized during reported right renal stone extraction with no st ones evident on the provided fluoroscopic images. Correlate with procedure note .
[2022-03-23] MEDS: LACTATED RINGERS 1,000 ML 30 ML IV CONT (06:34)
--- NOTE | 2022-03-23 06:47 | WPDANESEPPF ---
Anes - Initial Pre Proc Eval Procedure: Operation Date: 03/23/22 07:30 Proposed Procedures p Cystoscopy, Right Ureteroscopy, Right Stone Extraction, Right Stent Placement, Possible Holmium Laser Procedure - Jey Al MD Date/Time: 03/23/22 06:47 Surgeon: Jey Al MD Pre Op Diagnosis: right ureteral stones Patient Data Age: 42 Gender: F Height: 1.7 m Weight: 75 kg Last Vital Signs Temp 36.2 C L 03/23/22 06:11 Pulse 91 03/23/22 06:11 Resp 18 03/23/22 06:11 BP 111/60 03/23/22 06:11 Pulse Ox 98 03/23/22 06:11 O2 Del Method Room Air 03/23/22 06:11 Allergies Allergy/AdvReac Type Severity Reaction Status Date / Time No Known Allergies Allergy Verified 03/23/22 06:19 Home Medications Medication Instructions Recorded Confirmed Type oxycodone-acetaminophen 5 mg-325 1 tablet PO Q4H PRN Pain 03/22/22 03/23/22 History mg tablet tamsulosin 0.4 mg capsule 0.4 mg PO DAILY 03/22/22 03/23/22 History Patient hx anesthesia problems: none Family hx anesthesia problems: none Results Review: All pre-operative results and documents have been reviewed as part of the pre-operative evaluation. [facility] Past Medical History Medical History Hx of cervical cancer Smoker Tobacco abuse Surgical History Surgical History H/O breast augmentation H/O transurethral destruction of bladder lesion Hx of cystoscopy Hx of foot surgery Family History Family History Grandparent Diabetes mellitus Social History Social History Smoking packs per day: 1 Smoking cigarettes per day: 20.0 Years smoked: 11 Smoking pack-years: 11.00 Smoking status: Former smoker Tobacco type: cigarettes Second hand tobacco smoke exposure: No Smoking end date: 07/17/21 Additional smoking assessment comments: STOPPED 2019 Alcohol intake: current Drinks per week: 5 Alcohol use details: NOT RECENTLY Substance use: never Substance use type: does not use Living arrangements: with family Gender identity (if verbalized by the patient): Female Sexual Orientation (if Verbalized by the Patient): Straight or Heterosexual Spiritual care concerns: No Anes - Eval Final PreProcedure Day of Procedure 03/23/22 06:47 Patient weight: normal Heart: regular rate and rhythm Lungs: clear to auscultation Airway: Mallampati scale class 1 Neurological: alert and oriented Last oral intake: >/= 8 hours ASA classification: II Emergent: no Anesthetic plan: proceed Anesthesia type and monitoring: general LMA and standard monitoring Results Review: All pre-operative results and documents have been reviewed as part of the pre-operative evaluation. Informed Consent: The patient's anesthetic plan and its attendant risks and benefits were discussed with the patient/family/POA. Questions were solicited and answers provided to the satisfaction of the patient/family/POA.
--- NOTE | 2022-03-23 06:48 | WPDHPUPDATE1 ---
History and Physical Update Update Date/Time: 03/23/22 06:48 History and Physical has been reviewed, including an updated exam of the patient. There are NO changes in the patient's condition. Risks, benefits, and alternatives have been discussed and questions answered. Patient agrees to proceed with procedure.
[2022-03-23] MEDS: SCOPOLAMINE 1.5 MG PATCH TRANSDERM (07:00)
[2022-03-23] MEDS: ceFAZolin 2 GM/D5W 50 ML 2 GM/50 ML BAG IVPB (07:23)
[2022-03-23] MEDS: LIDOCAINE HCL 2% GEL UROJET 10 ML PKG MUCOUS MEM (07:37)
--- NOTE | 2022-03-23 08:02 | W.PM.PROC2 ---
Procedure Note - Detailed Date of Procedure 03/23/22 Pre-op Diagnosis Right ureteral stone Post-op Diagnosis Same Procedure Performed Cystoscopy, right ureteroscopy with stone extraction Surgeon Jey Al MD Description of Procedure The patient was brought to the operative suite where she is prepped and draped in a routine sterile fashion while in the dorsal lithotomy position after the uneventful induction of a general LMA anesthetic. A 19F rigid cystoscope was placed in the bladder. The patient had no evidence of urethral stricture or bladder neck contracture. The bladder mucosa was endoscopically normal without hyperemia or neoplasm. There was a single, orthotopic ureteral orifice bilaterally. A 0.035 glidewire was advanced into the right renal pelvis under fluoroscopy. The distal ureter was dilated with an 8F/10F ureteral dilator. Ureteroscopy was undertaken with a short, tapered, semi-rigid ureteroscope and 3 small stones were extracted with ease using a 1.9F Escape disposable stone basket. Due to the ease of this manipulation I opted not to place a ureteral stent. The patient's bladder was emptied and was taken to the recovery room having tolerated this procedure well. Drains No Packing No Pathology Yes Complications No immediate complications Condition Stable
[2022-03-23] MEDS: ONDANSETRON INJ 4 MG/2 ML VIAL IV PUSH (08:22)
[2022-03-23] MEDS: oxyCODONE HCL (*CRX) 5 MG TAB IR PO (09:24)
== END 2022-03-23 10:12 | disposition home or self-care (01) ==
PROVIDERS: PCP Nurse Practitioner Family; Visit Provider Urology
PROC: (CPT 52352; principal; 2022-03-23 07:30)
DX: N20.1 Calculus of ureter (principal); Z87.891 Personal history of nicotine dependence
CPT/HCPCS: 52352; 82365; 88300; 99199; A9270; C1769; J0690; J1100; J2250; J2405; J2704; J3010; J7120

== ENCOUNTER 2023-02-17 07:14 | Day surgery (SDC) | payer OTHER, SELFPAY ==
--- NOTE | ~2023-02-17 | XR_ITS ---
EXAMINATION: XR surgery orthopedic DATE: 02/17/2023 12:05 INDICATION: Instrumentation removal at the left foot TECHNIQUE: A single fluoroscopic image of the left ankle and portions of the mid and hindfoot were ob tained during procedure performed by Dr. Man. Radiologist was not present for the imaging or pro cedure. The amount of fluoroscopy time used during this procedure was 0.2 minutes. COMPARISON: 07/19/2019 FINDINGS: The previously seen metallic implant at the sinus Tarsi for arthroereisis is no longer visualized con sistent with provided history of instrumentation removal. There is a smaller more linear metallic den sity projecting over this region, unclear whether internal or external to the patient. Visualized bon es are unremarkable with normal alignment and no fracture. Profiled joint spaces appear unremarkable. IMPRESSION: 1. Fluoroscopy obtained during removal of an arthroereisis implant at the left sinus Tarsi. Reviewed, dictated and finalized at location A.
--- NOTE | 2023-02-17 08:26 | WPDHPUPDATE1 ---
History and Physical Update Update Date/Time: 02/17/23 08:26 History and Physical has been reviewed, including an updated exam of the patient. There are NO changes in the patient's condition. Risks, benefits, and alternatives have been discussed and questions answered. Patient agrees to proceed with procedure.
[2023-02-17 08:29] VITALS: BP 113/71; PULSE 73; RESP 16; TEMP 36.6; O2SAT 100
--- NOTE | 2023-02-17 10:19 | P.PNAN_ITS ---
Anes - Initial Pre Proc Eval Procedure: Operation Date: 02/17/23 09:30 Proposed Procedures p Removal Deep Orthopedic Hardware Left Foot - Charles Man JR, MD Date/Time: 02/17/23 10:19 Surgeon: Charles Man JR, MD Pre Op Diagnosis: Painful Hardware Left Foot Patient Data Age: 42 Gender: F Height: 1.7 m Weight: 70.4 kg Last Vital Signs Temp 36.6 C 02/17/23 08:29 Pulse 73 02/17/23 08:29 Resp 16 02/17/23 08:29 BP 113/71 02/17/23 08:29 Pulse Ox 100 02/17/23 08:29 O2 Del Method Room Air 02/17/23 08:29 Allergies Allergy/AdvReac Type Severity Reaction Status Date / Time No Known Allergies Allergy Verified 02/17/23 08:44 Home Medications Medication Instructions Recorded Confirmed Type oxycodone-acetaminophen 5 mg-325 1 tablet PO Q6H PRN pain #10 tabs 03/23/22 02/17/23 Rx mg tablet multivitamin 1 tablet PO DAILY 02/10/23 02/17/23 History Patient hx anesthesia problems: post op nausea/vomiting Family hx anesthesia problems: none Results Review: All pre-operative results and documents have been reviewed as part of the pre- operative evaluation. [facility] Past Medical History Medical History Hx of cervical cancer Smoker Tobacco abuse Surgical History Surgical History H/O breast augmentation H/O transurethral destruction of bladder lesion Hx of cystoscopy Hx of foot surgery Family History Family History Grandparent Diabetes mellitus Social History Social History Smoking packs per day: 1 Smoking cigarettes per day: 20.0 Years smoked: 11 Smoking pack-years: 11.00 Smoking status: Current some day smoker Tobacco type: cigarettes Second hand tobacco smoke exposure: No Smoking end date: 07/17/21 Additional smoking assessment comments: 10 per week, socially Alcohol intake: current Drinks per week: 5 Alcohol use details: rare, socially Substance use: never Substance use type: does not use Living arrangements: with family Gender identity (if verbalized by the patient): Female Sexual Orientation (if Verbalized by the Patient): Straight or Heterosexual Spiritual care concerns: No Anes - Eval Final PreProcedure Day of Procedure 02/17/23 10:19 Patient weight: normal Heart: regular rate and rhythm Lungs: clear to auscultation Airway: Mallampati scale class II Neurological: alert and oriented Last oral intake: >/= 8 hours ASA classification: II Emergent: no Anesthetic plan: proceed Anesthesia type and monitoring: general GIVS and standard monitoring Results Review: All pre-operative results and documents have been reviewed as part of the pre- operative evaluation. Informed Consent: The patient's anesthetic plan and its attendant risks and benefits were discussed with the patient/family/POA. Questions were solicited and answers provided to the satisfaction of the patient/family/POA.
--- NOTE | 2023-02-17 10:21 | WPDANESPN ---
Anes - Prog Note Post-Op Date/Time: 02/17/23 10:21 Cardiovascular status: normal Respiratory status: normal Airway patency: baseline Mental status: baseline Post-Op hydration status: normal Vital Signs: Last Vital Signs Temp 36.6 C 02/17/23 08:29 Pulse 73 02/17/23 08:29 Resp 16 02/17/23 08:29 BP 113/71 02/17/23 08:29 Pulse Ox 100 02/17/23 08:29 O2 Del Method Room Air 02/17/23 08:29 Pain Score (VAS): 0 Patient Feedback: Patient satisfied with anesthetic care.
[2023-02-17] MEDS: LACTATED RINGERS 1,000 ML 30 ML IV CONT (10:33)
[2023-02-17] MEDS: ceFAZolin SODIUM 2 GM/20 ML SW SYRINGE IV PUSH (11:12)
[2023-02-17] MEDS: LIDOCAINE HCL 2% LOCAL INJ 20 ML VIAL INFILTRATE (11:35)
[2023-02-17] MEDS: BUPivacaine HCL 0.5% 10 ML AMP INFILTRATE (11:35)
--- NOTE | 2023-02-17 12:04 | W.PM.PROC2 ---
Procedure Note - Detailed Date of Procedure 02/17/23 Pre-op Diagnosis Painful Hardware Left Foot Post-op Diagnosis Same Procedure Performed Painful hardware removal left foot Surgeon Charles Man JR, DPM Anesthesia MAC and Local Indications Painful fractured hardware removal left foot Description of Procedure Under mild sedation, the patient was brought to the operating room, placed on the operating table in the supine position. A pneumatic calf tourniquet was placed about the patient's left calf . Following MAC anesthesia I performed a local anesthetic nerve block with 20 cc of 2% Lidocaine plain and 0.5% Marcaine plain along the lateral distal leg and ankle. The left foot and distal leg was then scrubbed, prepped, and draped in the usual aseptic manner. An Esmarch bandage was then used to examine the patient's left foot and pneumatic calf tourniquet was then inflated. Surgery began in the following manner. Attention was directed to the lateral aspect of the calcaneus about an old incision, where I excised the old incision with two converging semielliptical incisions. I dissected deep down to the deep contents of the sinus tarsi where the Sinus Tarsi implant was visualized. It was noted to be scarred within the constraints of the sinus tarsi. I used a Babita clamp to remove the Hyprocure implant in toto. Fluoroscopy was used to make document implant removal. [place] I dissected the anterior lateral calcaneal wall and removed the Nitinol fractured staple. I closed the deep contents of the sinus tarsi with 4-0 Vicryl . Next, the skin was reapproximated and coapted with 4-0 Monocryl in running subcuticular suture fashion technique. Upon completion of the procedure, the incision was dressed with Adaptic, Kerlix Coban. The pneumatic calf tourniquet was then deflated and a prompt hyperemic response noted to all digits of the left foot. A CAM Walker boot was then applied. The patient did very well with the procedure and the anesthesia. She was transferred to the recovery room with vital signs stable and vascular status intact to all toes of the left foot. Following a period of postoperative monitoring, the patient will be discharged home on the following written and oral postoperative instructions: 1. Keep the dressing clean, dry, and intact. Use a cast protector bag with showers. 2. The patient to be protected weightbearing with a knee scooter. 3. The patient should ice and elevate the affected foot when at rest. 4. The patient to contact Dr. Man for all postop care and if any problems arise. 5. Prescriptions were written for Percocet 5/325 dispensed 40 to be taken 1 p.o. q.4 to 6 hours as needed for severe pain. Estimated Blood Loss 1 Drains No Packing No Pathology None sent Complications No immediate complications Condition Stable
[2023-02-17 12:05] VITALS: BP 102/60; PULSE 68; RESP 16; O2SAT 100
[2023-02-17] MEDS: oxyCODONE HCL (*CRX) 5 MG TAB IR PO (12:24)
[2023-02-17 12:30] VITALS: BP 98/43; PULSE 59; RESP 16; O2SAT 100
[2023-02-17 12:55] VITALS: BP 90/50; PULSE 62; RESP 16; O2SAT 99
== END 2023-02-17 13:07 | disposition home or self-care (01) ==
PROVIDERS: PCP Nurse Practitioner Family; Visit Provider Podiatrist Foot & Ankle Surgery
PROC: (CPT 20680; principal; 2023-02-17 09:30)
DX: T84.84XA Pain due to internal orthopedic prosthetic devices, implants and grafts, initial encounter (principal)
CPT/HCPCS: 20680; 99199

== ENCOUNTER 2023-07-26 06:24 | Emergency (ER) | payer OTHER, SELFPAY ==
[2023-07-26 06:41] VITALS: BP 108/55; PULSE 105; RESP 16; TEMP 35.9; O2SAT 98
[2023-07-26 07:39] LABS: Basophils Percent Auto 0.3 % (0.2-1.2); Eosinophils Percent Auto 0.3 % (0-4.4); Hematocrit 37.7 % (37.0-47.0); Hemoglobin 12.4 g/dL (12.0-15.0); Immature Granulocyte Percent A 0.7 % (0-0.5); Lymphocytes Absolute Auto 0.83 K/mm3 (0.9-3.2); Lymphocytes Percent Auto 5.5 % (18.3-44.2); Mean Corpuscular HGB Conc 32.9 g/dl (32-36); Mean Corpuscular Volume 88.1 fl (80-100); Mean Platelet Volume 9.9 fl (7.4-10.4); Monocytes Absolute Auto 0.6 K/mm3 (0.1-0.6); Monocytes Percent Auto 4.2 % (2.6-8.5); Neutrophils Absolute Auto 13.6 K/mm3 (1.3-6.7); Platelet Count Result 142 k/mm3 (150-375); Red Blood Count 4.28 M/mm3 (4.2-5.4); White Blood Count 15.2 K/mm3 (4.5-10.0)
[2023-07-26] MEDS: ONDANSETRON INJ 4 MG/2 ML VIAL IV PUSH (07:48)
[2023-07-26] MEDS: MORPHINE SULFATE (*CRX) 4 MG/ML INJ IV PUSH (07:48)
[2023-07-26] MEDS: SODIUM CHLORIDE 0.9% IV 1,000 ML 999 ML IV CONT (07:48)
[2023-07-26 07:51] LABS: Alanine Aminotransferase 20 U/L (6-35); Albumin Level 3.9 g/dL (3.5-5.1); Alkaline Phosphatase 100 U/L (38-126); Anion Gap 6 mmol/L (8-16); Aspartate Amino Transferase 26 U/L (14-36); Bilirubin,Total 0.6 mg/dL (0.2-1.3); Blood Urea Nitrogen 10 mg/dL (7-17); Calcium 10.2 mg/dL (8.4-10.2); Carbon Dioxide 24 mmol/L (22-30); Chloride 107 mmol/L (98-107); Estimated CRCL calculation 58 ml/min; Estimated Glomerular Filt Rate 55; Glucose 104 mg/dL (65-110); Potassium 3.3 mmol/L (3.4-5.0); Sodium 137 mmol/L (137-145)
[2023-07-26 08:20] LABS: Appearance Urine Clear (Clear); Bacteria Urine None Seen /hpf; Bilirubin Urine Negative (Negative); Blood Urine 2+ (Negative); Color Urine Yellow (Yellow); Glucose Urine UA Negative (Negative); Ketones Urine Negative (Negative); Leukocyte Esterase Ur Trace LEU/UL (Negative); Need Manual Microscopic Reviewed; Nitrate Urine Negative (Negative); Non Pathogenic Casts 0-2; Protein Urine Trace mg/dL (Negative); RBC Urine 0-2 /hpf (0-2); Specific Grav Ur 1.003 (1.001-1.035); Squamous Epithelial Cell Urine None seen /hpf (Few); Urobilinogen Urine 0.2 mg/dL (<2.0)
[2023-07-26 08:21] LABS: Add Urine Microscopic? YES
[2023-07-26 08:59] VITALS: BP 96/49; PULSE 88; RESP 18; O2SAT 100
--- NOTE | 2023-07-26 09:17 | ED.GENADULT ---
HPI - General Adult General Chief complaint: Urogenital-Female Stated complaint: headache, heart palpitations, body aches, chills Time Seen by Provider: 07/26/23 06:58 History of Present Illness HPI narrative: patient is a 43-year-old female who presents ER with multiple issues. Recently diagnosed with UTI in [facility]. This was Monday night going into Monday morning. She was started on Bactrim. She has taken medication and continues to feel worse. She has aching discomfort in her back as well as her abdomen. She is persistently nauseous. She is having chills and fevers. She also has body aches and headache. No runny nose sore throat or cough. Related Data Home Medications Medication Instructions Recorded Confirmed multivitamin 1 tablet PO DAILY 02/10/23 07/26/23 phenazopyridine 100 mg tablet mg 07/26/23 sulfamethoxazole 800 tablet 07/26/23 mg-trimethoprim 160 mg tablet Allergies Allergy/AdvReac Type Severity Reaction Status Date / Time No Known Allergies Allergy Verified 07/26/23 07:19 Review of Systems Review of Systems: All systems reviewed & are unremarkable except as noted in HPI and below Constitutional: Constitutional: Reports chills, Reports fatigue and Reports fever(s) ENT: Denies nasal congestion and Denies sore throat Cardiovascular: Cardiovascular: Denies chest pain, Reports rapid heart rate and Denies radiating jaw, neck or arm pain Respiratory: Respiratory: Reports no additional respiratory complaints Gastrointestinal: Gastrointestinal: Reports abdominal pain, Denies diarrhea, Reports nausea and Denies vomiting Genitourinary: Genitourinary: Reports nocturia, Reports dysuria and Reports flank pain PMFSH Past Medical History Medical History Hx of cervical cancer Smoker Tobacco abuse Surgical History Surgical History H/O breast augmentation H/O transurethral destruction of bladder lesion Hx of cystoscopy Hx of foot surgery Family History Family History Grandparent Diabetes mellitus Social History Social History Smoking packs per day: 1 Smoking cigarettes per day: 20.0 Years smoked: 11 Smoking pack-years: 11.00 Smoking status: Current some day smoker Tobacco type: cigarettes Second hand tobacco smoke exposure: No Smoking end date: 07/17/21 Additional smoking assessment comments: 10 per week, socially Alcohol intake: current Drinks per week: 5 Alcohol use details: rare, socially Substance use: never Substance use type: does not use Living arrangements: with family Gender identity (if verbalized by the patient): Female Sexual Orientation (if Verbalized by the Patient): Straight or Heterosexual Spiritual care concerns: No Exam Narrative: GENERAL: Fatigued-appearing, well-nourished, and in no acute distress. HEAD: Normocephalic, atraumatic. ENT: Mucous membranes moist. NECK: Supple. CHEST: Clear to auscultation. No respiratory distress. HEART: tachycardic and regular. Normal peripheral pulses. ABDOMEN: Soft, nontender, nondistended. no CVA tenderness EXTREMITIES: Normal range of motion. No edema. SKIN: Warm, dry, no rash. NEURO: Alert and oriented x3. PSYCH: Normal mood and affect. Course Course Emergency Course: -Course: Discussed patient's lab results from [place] with Dr. Hi who called with the sensitivities. Resistant to sulfa, Ampicillin, and poor sensitivity to Macrobid. sensitive to cephalosporins. -Co-morbidities complicating care: None -Social determinants of health: none -External Chart Review: none -Hx from independent Sources: patient -Independent interpretation of studies: elevated white blood cell count. Normal creatinine. Urinalysis with persist
== END 2023-07-26 09:29 | disposition home or self-care (01) ==
PROVIDERS: Emergency Provider Emergency Medicine; PCP Nurse Practitioner Family
DX: N12 Tubulo-interstitial nephritis, not specified as acute or chronic (principal); Z85.41 Personal history of malignant neoplasm of cervix uteri; Z87.891 Personal history of nicotine dependence
CPT/HCPCS: 36415; 80053; 81001; 81025; 85025; 87077; 87086; 87088; 87186; 96361; 96374; 96375; 99284; J2270; J2405; J7030

== ENCOUNTER 2023-08-17 02:14 | Day surgery (SDC) | payer OTHER, SELFPAY ==
[2023-08-16 15:21] VITALS: BMI 23.8
--- NOTE | 2023-08-16 15:24 | PC.NURSE ---
Report to the Outpatient Waiting Room, entrance under the green pavilion located off [facility], at time 1300 on date 08/17/23. Planned Procedure Time: 1500. Time changes happen often and if your time is changed the preop area will call you the afternoon before. - You and your visitor will be asked to self-screen and do not enter if you have any COVID symptoms. - A mask is optional within the hospital at this time. Patients may have clear liquids (water, carbonated beverages, clear teas, apple juice) until 3 hours prior to surgery with a maximum of 20 ounces. - No food from midnight until time of surgery Take the following medications with a SIP of water the morning of surgery: ANTIBIOTIC DO NOT STOP ANY OF YOUR OTHER PRESCRIPTION MEDICATIONS PRIOR TO SURGERY ?EXCEPT THE FOLLOWING Medications to discontinue per physician: VITAMINS Date to take last dose: NO MORE UNTIL AFTER SURGERY Please no make-up, nail vincentian, hairspray, perfume, deodorant, or body powder the day of surgery. No jewelry (including any body piercings) or valuables the day of surgery, leave them at home. Please take a shower or bath the night before, or the morning of, surgery with an antibacterial soap. Wear comfortable, loose fitting clothing. - Jewelry must be removed prior to entering the operating room. Rings and piercings that are not removed may be cut off. - The hospital will not accept responsibility for valuables. - Please leave all valuables, including medications, at home the day of surgery. If you are going home after surgery, a licensed van driver must drive you home. - NO public transportation without another adult if you receive anesthesia. - We recommend that an adult stay with you for 24 hours following discharge. - We also recommend that you do not drive, make important decision, drink alcoholic beverages, or take any drugs that were not prescribed by your health care provider for at least 24 hours after your discharge time. Follow any additional instructions given to you from your surgeon. If you or anyone in your household have experienced Covid symptoms in the past week, please notify your surgeon or the nurse liaison at the phone number below for possible testing. Telephone instructions given to [employer] [employer] and asked if any additional questions and then verbalized understanding. Patient advised to call surgeon office or pre surgery nurse liaison [phone] if any additional questions.
[2023-08-17] VITALS (7 sets, daily range): BP systolic 110–131; BP diastolic 56–73; PULSE 59–80; RESP 12–16; TEMP 36.2–36.5; O2SAT 97–100; BMI 22.9
--- NOTE | ~2023-08-17 | XR_ITS ---
EXAMINATION: XR retrograde pyelogram BI DATE: 08/19/2023 06:27 CDT INDICATION: Bilateral retrograde pyelogram TECHNIQUE: 81 fluoroscopic images from a bilateral retrograde pyelogram are submitted for review. 19 seconds of fluoroscopy. FINDINGS: There is normal contrast opacification of the ureters and renal collecting systems bilatera lly. No persistent filling defects are identified to suggest stones or mass. IMPRESSION: 1. Unremarkable bilateral retrograde pyelogram.. Correlate with real time procedural findings for de tails. Reviewed, dictated and finalized at location A. IMPRESSION: 1. Unremarkable bilateral retrograde pyelogram.. Correlate with real time proc edural findings for details.
--- NOTE | 2023-08-17 06:22 | WPDHPUPDATE1 ---
History and Physical Update Update Date/Time: 08/17/23 06:22 History and Physical has been reviewed, including an updated exam of the patient. There are NO changes in the patient's condition. Risks, benefits, and alternatives have been discussed and questions answered. Patient agrees to proceed with procedure.
--- NOTE | 2023-08-17 07:24 | SUR.PREOP ---
called to arrive at 830 due to change in OR schedule states will be here at that time
--- NOTE | 2023-08-17 08:41 | P.PNAN_ITS ---
Anes - Initial Pre Proc Eval Procedure: Operation Date: 08/17/23 15:00 Proposed Procedures p Cystoscopy, Bilateral Retrograde Pyelogram, Possible Right Ureteroscopy - Jey Al MD Date/Time: 08/17/23 08:41 Surgeon: Jey Al MD Pre Op Diagnosis: right hydronephrosis, gross hematuria Patient Data Age: 43 Gender: F Height: 1.7 m Weight: 69 kg Allergies Allergy/AdvReac Type Severity Reaction Status Date / Time No Known Allergies Allergy Verified 08/16/23 15:18 Home Medications Medication Instructions Recorded Confirmed Type multivitamin 1 tablet PO DAILY 02/10/23 08/16/23 History levofloxacin 500 mg tablet 500 mg PO BID 08/16/23 08/16/23 History Patient hx anesthesia problems: none Family hx anesthesia problems: none Results Review: All pre-operative results and documents have been reviewed as part of the pre- operative evaluation. [facility] Past Medical History Medical History Hx of cervical cancer Smoker Tobacco abuse Surgical History Surgical History H/O breast augmentation H/O transurethral destruction of bladder lesion Hx of cystoscopy Hx of foot surgery Family History Family History Grandparent Diabetes mellitus Social History Social History Smoking packs per day: 1 Smoking cigarettes per day: 20.0 Years smoked: 10 Smoking pack-years: 10.00 Smoking status: Current some day smoker Tobacco type: cigarettes Second hand tobacco smoke exposure: No Smoking end date: 07/17/21 Additional smoking assessment comments: 10 per week, socially Alcohol intake: current Drinks per week: 5 Alcohol use details: NOT RECENTLY Substance use: never Substance use type: does not use Living arrangements: with family Gender identity (if verbalized by the patient): Female Sexual Orientation (if Verbalized by the Patient): Straight or Heterosexual Spiritual care concerns: No Anes - Eval Final PreProcedure Day of Procedure 08/17/23 08:41 Patient weight: normal Heart: regular rate and rhythm Lungs: clear to auscultation Airway: Mallampati scale class 1 Neurological: alert and oriented Last oral intake: >/= 8 hours ASA classification: II Emergent: no Anesthetic plan: proceed Anesthesia type and monitoring: general LMA and standard monitoring Results Review: All pre-operative results and documents have been reviewed as part of the pre- operative evaluation. Informed Consent: The patient's anesthetic plan and its attendant risks and benefits were discussed with the patient/family/POA. Questions were solicited and answers provided to the satisfaction of the patient/family/POA.
[2023-08-17] MEDS: ceFAZolin 2 GM/D5W 50 ML 2 GM/50 ML BAG IVPB (10:36)
[2023-08-17] MEDS: LIDOCAINE HCL 2% GEL UROJET 10 ML PKG MUCOUS MEM (10:58)
[2023-08-17] MEDS: TRIAMCINOLONE ACET INJ 40 MG/ML VIAL 80 MG IM (11:01)
--- NOTE | 2023-08-17 11:12 | W.PM.PROC2 ---
Procedure Note - Detailed Date of Procedure 08/17/23 Pre-op Diagnosis Right hydronephrosis, gross hematuria Post-op Diagnosis Same Procedure Performed cystoscopy, bilateral retrograde pyelography, cauterization of bladder and injection of a bladder ulcer with Kenalog Surgeon Jey Al MD Anesthesia General Findings 1. Probable right vesicoureteral reflux 2. 1.5 cm area of vascular glomerulation in the posterior bladder wall - likely cause for gross hematuria 3. 1.5 cm area of ulceration the right posterior bladder wall Description of Procedure Patient is brought to the operative suite where she is prepped and draped in routine sterile fashion while in dorsal lithotomy position after the uneventful induction of a general LMA anesthetic. Cystoscopy was undertaken with a 19 F rigid cystoscope. Urine was collected for culture. Bladder neck and urethra endoscopically normal. Careful inspection of her bladder shows an area intensive vascular glomerulation in the left posterior lateral bladder wall. Additionally, there was an area of ulceration in the right posterior lateral bladder wall that measures 1.5 cm. The remainder of the bladder mucosa is perfectly normal. An 8 F bulb-tipped catheter was used to obtain bilateral retrograde pyelogram. There was no points of obstruction or filling defect. She does have a patulous right ureteral orifice and I suspect she has vesicoureteral reflux. Otherwise, the retrograde pyelograms were normal. Using a 24 F resectoscope by aggressively cauterized the glomerulation in the posterior bladder wall. I then injected 80 mg of Kenalog in the perimeter of the ulcer as well as in the ulcer itself. Scopes and wires removed. The patient was taken recovery room good condition. Drains No Packing No Pathology None sent Complications No immediate complications Condition Stable Disposition PACU
[2023-08-17] MEDS: LACTATED RINGERS 1,000 ML 30 ML IV CONT (11:14)
[2023-08-17] MEDS: fentaNYL CITRATE INJ (*CRX) 100 MCG/2 ML VIAL 25 MCG IV PUSH ×4 (11:48→12:34)
[2023-08-17] MEDS: oxyCODONE HCL (*CRX) 5 MG TAB IR PO (12:33)
--- NOTE | 2023-08-18 08:44 | PM.HPGS ---
History of Present Illness History of Present Illness Consent: Risks, benefits, and alternatives have been discussed and questions answered. Patient agrees to proceed with procedure. Chief complaint: right hydronephrosis, gross hematuria Narrative: Laura Galloway is a 43 year old female with a known history of eosinophilic cystitis came back after a couple absence with a several day history profound gross hematuria and mild irritable voiding symptoms. She had had no fevers chills or significant flank / pain. Review of Systems Cardiovascular: Cardiovascular: Denies chest pain, Denies lightheadedness, Denies palpitations and Denies dyspnea Respiratory: Respiratory: Denies dyspnea Gastrointestinal: Gastrointestinal: Denies diarrhea, Denies nausea and Denies vomiting Genitourinary: Genitourinary: Reports hematuria and Denies dysuria Endocrine: Endocrine: Denies palpitations PMFSH Past Medical History Medical History Hx of cervical cancer Smoker Tobacco abuse Surgical History Surgical History H/O breast augmentation H/O transurethral destruction of bladder lesion Hx of cystoscopy Hx of foot surgery Family History Family History Grandparent Diabetes mellitus Social History Social History Smoking packs per day: 1 Smoking cigarettes per day: 20.0 Years smoked: 10 Smoking pack-years: 10.00 Smoking status: Current some day smoker Tobacco type: cigarettes Second hand tobacco smoke exposure: No Smoking end date: 07/17/21 Additional smoking assessment comments: 10 per week, socially Alcohol intake: current Drinks per week: 5 Alcohol use details: NOT RECENTLY Substance use: never Substance use type: does not use Living arrangements: with family Gender identity (if verbalized by the patient): Female Sexual Orientation (if Verbalized by the Patient): Straight or Heterosexual Spiritual care concerns: No Meds Home Medications and Allergies Home Medications Medication Instructions Recorded Confirmed Type multivitamin 1 tablet PO DAILY 02/10/23 08/17/23 History levofloxacin 500 mg tablet 500 mg PO BID 08/16/23 08/17/23 History hydrocodone 5 mg-acetaminophen 325 1 - 2 tablet PO Q6H PRN pain #20 08/17/23 Rx mg tablet tabs Allergies Allergy/AdvReac Type Severity Reaction Status Date / Time No Known Allergies Allergy Verified 08/17/23 09:09 Vital Signs Vital Signs - 24 hr 08/17/23 09:17 08/17/23 11:14 08/17/23 11:30 Temperature 97.7 F 97.1 F L Pulse Rate 80 76 62 Respiratory Rate 16 12 12 Blood Pressure 111/56 L 131/72 110/68 Pulse Oximetry 99 100 100 Oxygen Delivery Room Air Simple Face Mask Simple Face Mask Oxygen Flow Rate 8 8 08/17/23 11:36 08/17/23 11:45 08/17/23 11:59 Temperature Pulse Rate 62 59 L Respiratory Rate 12 12 Blood Pressure 116/64 111/73 Pulse Oximetry 100 100 97 Oxygen Delivery Room Air Room Air Room Air Oxygen Flow Rate 08/17/23 12:20 Temperature Pulse Rate 72 Respiratory Rate 12 Blood Pressure 124/61 Pulse Oximetry Oxygen Delivery Oxygen Flow Rate Exam Const: General: no acute distress Resp: Effort & Inspection: normal respiratory effort GI: Inspection: non-distended GI Palp: No abdominal tenderness and No Guarding due to palpation present (GI) Auscultation: normal bowel sounds Assessment and Plan Assessment and plan (1) Eosinophilic cystitis: Code(s): N30.80 - Other cystitis without hematuria; D72.18 - Eosinophilia in diseases classified elsewhere Status: Acute (2) Gross hematuria: Code(s): R31.0 - Gross hematuria Status: Acute Assessment and Plan: Patient was scheduled for cystoscopy with bilateral retrograde pyelography. This procedure was
== END 2023-08-17 13:03 | disposition home or self-care (01) ==
PROVIDERS: PCP Nurse Practitioner Family; Visit Provider Urology
PROC: (CPT 52352; principal; 2023-08-17 15:00)
DX: N13.30 Unspecified hydronephrosis (principal); N32.89 Other specified disorders of bladder; Z85.41 Personal history of malignant neoplasm of cervix uteri; F17.210 Nicotine dependence, cigarettes, uncomplicated
CPT/HCPCS: 52234; 52283; 74420; 87086; A9270; C1758; C1769; J0690; J1100; J1170; J2250; J2405; J2704; J3010; J3301; J7120; Q9966

== ENCOUNTER 2023-08-24 08:14 | Outpatient (CLI) | payer OTHER, SELFPAY ==
--- NOTE | ~2023-08-24 | MM_ITS ---
EXAMINATION: MM scrn iam implant BI w jean marie HISTORY: Screening mammogram TECHNIQUE: Craniocaudal and mediolateral oblique 3-D tomosynthesis images with implant displacement a nd synthetic 2-D images were generated. Craniocaudal and mediolateral oblique views of the breasts wi thout implant displacement were obtained using full field digital mammography. CAD analysis was submi tted and interpreted. COMPARISON: No prior mammogram is available for comparison at this institution. BREAST PARENCHYMAL COMPOSITION: There are scattered areas of fibroglandular density. FINDINGS: Status post bilateral augmentation mammoplasty. There is no evidence of suspicious mass, ca lcification, or architectural distortion to suggest malignancy in either breast. IMPRESSION: 1. No mammographic evidence of malignancy. 2. Recommend routine screening mammography in one year. BI-RADS Category 1: Negative Reviewed, dictated and finalized at location A.
== END 2023-08-24 08:15 | disposition home or self-care (01) ==
LOC: ANHIMG 08:15
PROVIDERS: PCP Nurse Practitioner Family; Visit Provider Surgery Plastic and Reconstructive Surgery
DX: Z12.31 Encounter for screening mammogram for malignant neoplasm of breast (principal)
CPT/HCPCS: 77063; 77067